=== PATIENT | female | born 1960 | race Caucasian/White ===

== ENCOUNTER 2016-10-18 08:50 | Inpatient (IN) | payer MEDICARE, MEDICAID ==
[2016-10-18] MEDS ORDERED: Naloxone* 0.4 MG/ML 1 ML VIAL ONE ×2 (08:53→08:55)
[2016-10-18] MEDS ORDERED: Acetaminophen SUPP* 650 MG SUPP ONE (08:56)
[2016-10-18] MEDS: NS 0.9% 1000 ML* 3,000 ML IV ONE ×3 (08:58→09:37)
[2016-10-18] MEDS ORDERED: Acetaminophen SUPP* 650 MG SUPP PR ONE (08:58)
[2016-10-18] MEDS ORDERED: Naloxone* 0.4 MG/ML 1 ML VIAL IV PUSH ONE (08:58)
[2016-10-18 09:13] LABS: FIO2 90
[2016-10-18 09:16] LABS: PCO2 Arterial 34 mmHg (35-45)
[2016-10-18 09:22] LABS: Hematocrit 38 % (35-47); Hemoglobin 12.6 g/dl (12.0-16.0); Mean Corpuscular HGB Conc 33 g/dl (31-36); Mean Corpuscular Hemoglobin 29 pg (27-31); Mean Corpuscular Volume 89 fL (80-97); Mean Platelet Volume 10 um3 (7.4-10.4); Red Blood Count 4.28 10^6/ul (4.0-5.4); Red Cell Distribution Width 13 % (10.5-15); White Blood Count 11.1 10^3/ul (3.5-10.8)
[2016-10-18 09:24] LABS: Add Diff/Slide Review? Slide Review Added; Comments Flag Yes
[2016-10-18] MEDS ORDERED: Vancomycin(*) 1,000 MG in NS 0.9% 250 ML* 250 ML IVPB ONE (09:27)
[2016-10-18] MEDS ORDERED: Piperac/Tazob 3.375 gm in NS* 3.375 GM/100 ML BAG IVPB ONE ×2 (09:27→12:30)
--- NOTE | 2016-10-18 09:30 | RAD ---
Indication: Fever, pneumonia. Single frontal view of the chest performed at 0917 hours was reviewed. Comparison is made with previous exam dated 07/08/2010. No mediastinal shift is noted. Heart is of normal size and configuration. There is increased density in the right upper lobe medially as well as in the right lower lobe medially suspicious for pneumonia. IMPRESSION: Findings consistent with right lower lobe and right upper lobe pneumonia. Left lung field is clear
[2016-10-18 09:38] LABS: Benzodiazepine Urine Screen Presumptive Positive (None Detect); Urine Bacteria Absent (Absent); Urine Bilirubin Negative (Negative); Urine Glucose Negative (Negative); Urine Nitrite Negative (Negative)
[2016-10-18 09:41] LABS: Albumin 3.6 g/dL (3.2-5.2); BUN/Creatinine Ratio 19.7 (8-20); C Reactive Protein 258.14 mg/L (< 5.00); Calcium 8.9 mg/dL (8.6-10.3); EGFR African American 30.8 (>60); Globulin 3.1 g/dL (2-4); Potassium 3.8 mmol/L (3.5-5.0); Total Bilirubin 0.6 mg/dL (0.2-1.0); Total Protein 6.7 g/dL (6.4-8.9)
[2016-10-18 09:46] LABS: Troponin I 1.41 ng/mL (<0.04)
[2016-10-18 09:47] LABS: Immature Granulocytes 13 % (0-9); Neutrophil % 67 % (38-83)
[2016-10-18 09:48] LABS: RBC Morphology Normal (Normal)
--- NOTE | 2016-10-18 10:24 | RAD ---
Indication: Altered mental status, confusion. CT of the brain was performed without IV contrast. Ventricular structures are midline. No midline shift is noted. The extraction spaces are unremarkable. There is no evidence of intracranial mass or hemorrhage. No other high or low density lesions are identified. IMPRESSION: No intracranial mass or hemorrhage is noted.
[2016-10-18 10:25] LABS: Erythrocyte Sed Rate 58 mm/Hr (0-30)
--- NOTE | 2016-10-18 11:49 | ED ---
Jayden Franz SooYoung, scribed for Conrado Rockwell MD on 10/18/16 at 0917 . Altered Mental Status - HPI Summary HPI Summary: LEVEL 5 CAVEAT: LIMITED HPI DUE TO PT CONDITION: UNRESPONSIVE A 55 y/o F ELIAA presents to ED unresponsive. Pt has been prev admitted for psychosis and drug overdose. According to EMS: Pt had been sleeping for 30 hours. Mostly sporadic movement. She was given two Narcan nasally and became slightly more responsive. Blood sugar was 115. Sp02 is 92. Sinus tachy at 107. Was told by friend on scene that pt is on a lot of pain meds, he will bring list to ED. Tympanic temp 101.8. - History Of Current Complaint Stated Complaint: AMS Time Seen by Provider: 10/18/16 08:58 Hx Obtained From: EMS, Medical Records - Allergies/Home Medications Allergies/Adverse Reactions: Allergies Allergy/AdvReac Type Severity Reaction Status Date / Time CONTRAST FOR MYLOGRAM Allergy See Comment Uncoded 02/08/14 11:53 PMH/Surg Hx/FS Hx/Imm Hx Previously Healthy: No Endocrine/Hematology History: Denies: Hx Diabetes Cardiovascular History: Denies: Hx Hypertension, Hx Pacemaker/ICD History: Denies: Hx Renal Disease Sensory History: Denies: Hx Hearing Aid Psychiatric History: Reports: Hx Eating Disorder Denies: Hx Panic Disorder, Hx of Violent Episodes Against Others - Cancer History Hx Chemotherapy: No Hx Radiation Therapy: No - Surgical History Surgery Procedure, Year, and Place: CSP - C5-6 CADAVOR( OWN HIP BONE ). TONSILECTOMY. LT ARM - FX. HYSTERECTOMY Infectious Disease History: Denies: Traveled Outside the [place] in Last 30 Days - Family History Family History: LEVEL 5 CAVEAT: LIMITED PMHx/FHx/SHx DUE TO PT CONDITION: UNRESPONSIVE - Social History Alcohol Use: None Substance Use Type: Reports: None Smoking Status (MU): Never Smoked Tobacco Review of Systems - ROS Summary Review of Systems Summary: LEVEL 5 CAVEAT: LIMITED ROS DUE TO PT CONDITION: UNRESPONSIVE Neurological: Other - unresponsive All Other Systems Reviewed And Are Negative: Yes Physical Exam - Summary Physical Exam Summary: LEVEL 5 CAVEAT: PE LIMITED DUE TO PT CONDITION, UNRESPONSIVE: The patient is NONVERBAL, NOT FOLLOWING COMMANDS. RESPONDS TO PAINFUL STIMULI. SKIN: L TEMPORAL ECCHYMOSIS. TURGOR DECREASED. HEENT: The head is normocephalic and atraumatic. The conjunctivae are clear and without drainage. Nares are patent and without drainage. Throat is without erythema and exudate. The external ears are intact. The ear canals are patent and without drainage. The tympanic membranes are intact. PUPILS DILATED. EAR DRUMS NML. NO RHINORRHEA. ORAL MUCOSA EXTREMELY DRY. GAG REFLEX POSITIVE. Neck is supple. Respiratory: Chest is non-tender. Lungs are clear to auscultation and breath sounds are symmetrical and equal. Cardiovascular: Heart is regular rhythm. TACHYCARDIA. There is NO MURMUR APPRECIATED. There is no peripheral edema and pulses are symmetrical and equal. Abdomen: The abdomen is soft and non-tender. There are normal bowel sounds heard in all four quadrants and there is no organomegaly palpated. Musculoskeletal: NO BACK TRAUMA. BEGINNING BREAKDOWN OF SACCRUM. CAP REFILL 2 SECS. There is no peripheral edema or calf tenderness elicited. Triage Information Reviewed: Yes Vital Signs On Initial Exam: Initial Vitals Pulse Resp BP Pulse Ox 106 32 152/96 97 10/18/16 08:54 10/18/16 08:54 10/18/16 08:54 10/18/16 08:54 Vital Signs Reviewed: Yes Diagnostics - Vital Signs Vital Signs Temp Pulse Resp BP Pulse Ox 10/18/16 10:15 99.5 F 99 29 100 10/18/16 10:00 38 F 100 36 152/96 98 10/18/16 09:59 100.0 F 101 31 100 10/18/16 09:30 100.6 F 96 29 180/87 100 10/18/16 09:24 100.6 F 96 29 100 10/18/16 09:23 165/90 10/18/16 09:17 38 F 98 36 167/85 100 10/18/16 09:12 101 35 91 10/18/16 09:00 105 34 161/77 98 10/18/16 08:54 106 32 152/96 97 - Laboratory Lab Results: Lab Results 10/18/16 10/18/16 10/18/16 Range/Units 09:00 09:00 09:00 WBC (3.5-10.8) 10^3/ul RBC (4.0-5.4) 10^6/ul Hgb (12.0-16.0) g/dl Hct (35-47) % MCV (80-97) fL MCH (27-31) pg MCHC (31-36) g/dl RDW (10.5-15) % Plt Count (150-450) 10^3/ul MPV (7.4-10.4) um3 Immature Gran % (Auto) (0-9) % Neut % (Auto) (38-83) % Lymph % (Auto) (25-47) % [place] % (Auto) (1-9) % Eos % (Auto) (0-6) % Baso % (Auto) (0-2) % Absolute Neuts (auto) (1.5-7.7) 10^3/ul Absolute Lymphs (auto) (1.0-4.8) 10^3/ul Absolute Monos (auto) (0-0.8) 10^3/ul Absolute Eos (auto) (0-0.6) 10^3/ul Absolute Basos (auto) (0-0.2) 10^3/ul Absolute Nucleated RBC 10^3/ul Neutrophils % (38-83) % Band Neutrophils % (0-8) % Lymphocytes % (25-47) % Monocytes % (0-13) % Basophils % (0-2) % Nucleated RBC % Normal RBC Morphology (Normal) ESR (0-30) mm/Hr INR (Anticoag Therapy) (0.89-1.11) APTT (26.0-36.3) seconds Patient Temperature Not Reportable ABG pH 7.45 (7.35-7.45) ABG pCO2 34 L (35-45) mmHg ABG pO2 105 H (80-100) mmHg ABG HCO3 24.9 (19-31) mmol/L ABG O2 Saturation 99.2 H (95-98) % ABG Base Excess 0 (-2.0-2.0) Respiration Rate Not Reportable O2 Delivery Device Oxymask Ventilator Type Not Reportable Vent Mode Not Reportable FiO2 90 Inspiratory Time Not Reportable PEEP Not Reportable Pressure Support Not Reportable Pressure Control Not Reportable EPAP Not Reportable IPAP Not Reportable BiPAP Not Reportable Sodium (133-145) mmol/L Potassium (3.5-5.0) mmol/L Chloride (101-111) mmol/L Carbon Dioxide (22-32) mmol/L Anion Gap (2-11) mmol/L BUN (6-24) mg/dL Creatinine (0.51-0.95) mg/dL Est GFR ( Amer) (>60) Est GFR (Non-Af Amer) (>60) BUN/Creatinine Ratio (8-20) Glucose (70-100) mg/dL Lactic Acid (0.5-2.0) mmol/L Calcium (8.6-10.3) mg/dL Total Bilirubin (0.2-1.0) mg/dL AST (13-39) U/L ALT (7-52) U/L Alkaline Phosphatase (34-104) U/L Total Creatine Kinase (10-223) U/L Troponin I (<0.04) ng/mL C-Reactive Protein (< 5.00) mg/L Total Protein (6.4-8.9) g/dL Albumin (3.2-5.2) g/dL Globulin (2-4) g/dL Albumin/Globulin Ratio (1-3) Procalcitonin (<0.6) ng/mL Urine Color [place] Urine Appearance Cloudy Urine pH 5.0 (5-9) Ur Specific [place] 1.021 (1.010-1.030) Urine Protein 1+(30 mg/dl) H (Negative) Urine Ketones Trace H (Negative) Urine Blood 2+ H (Negative) Urine Nitrate Negative (Negative) Urine Bilirubin Negative (Negative) Urine Urobilinogen Negative (Negative) Ur Leukocyte Esterase Negative (Negative) Urine WBC (Auto) Absent (Absent) Urine RBC (Auto) Trace(0-2/hpf) (Absent) Ur Squamous Epith Cells Present H (Absent) Amorphous Crystals Present H (Absent) Urine Bacteria Absent (Absent) Hyaline Casts Present H (Absent) Urine Glucose Negative (Negative) Urine Opiates Screen Presumptive positive H (None Detect) Ur Barbiturates Screen None detected (None Detect) Ur Phencyclidine Scrn None detected (None Detect) Ur Amphetamines Screen None detected (None Detect) U Benzodiazepines Scrn Presumptive positive H (None Detect) Urine Cocaine Screen None detected (None Detect) U Cannabinoids Screen Presumptive positive H (None Detect) Influenza A (Rapid) (Negative) Influenza B (Rapid) (Negative) 10/18/16 10/18/16 10/18/16 Range/Units 09:13 09:13 09:13 WBC 11.1 H (3.5-10.8) 10^3/ul RBC 4.28 (4.0-5.4) 10^6/ul Hgb 12.6 (12.0-16.0) g/dl Hct 38 (35-47) % MCV 89 (80-97) fL MCH 29 (27-31) pg MCHC 33 (31-36) g/dl RDW 13 (10.5-15) % Plt Count 195 (150-450) 10^3/ul MPV 10 (7.4-10.4) um3 Immature Gran % (Auto) 13 H (0-9) % Neut % (Auto) 87.4 H (38-83) % Lymph % (Auto) 5.3 L (25-47) % [place] % (Auto) 7.1 (1-9) % Eos % (Auto) 0.1 (0-6) % Baso % (Auto) 0.1 (0-2) % Absolute Neuts (auto) 9.7 H (1.5-7.7) 10^3/ul Absolute Lymphs (auto) 0.6 L (1.0-4.8) 10^3/ul Absolute Monos (auto) 0.8 (0-0.8) 10^3/ul Absolute Eos (auto) 0 (0-0.6) 10^3/ul Absolute Basos (auto) 0 (0-0.2) 10^3/ul Absolute Nucleated RBC 0 10^3/ul Neutrophils % 67 (38-83) % Band Neutrophils % 13 H (0-8) % Lymphocytes % 10 L (25-47) % Monocytes % 9 (0-13) % Basophils % 1 (0-2) % Nucleated RBC % 0 Normal RBC Morphology Normal (Normal) ESR 58 H (0-30) mm/Hr INR (Anticoag Therapy) 1.01 (0.89-1.11) APTT 30.8 (26.0-36.3) seconds Patient Temperature ABG pH (7.35-7.45) ABG pCO2 (35-45) mmHg ABG pO2 (80-100) mmHg ABG HCO3 (19-31) mmol/L ABG O2 Saturation (95-98) % ABG Base Excess (-2.0-2.0) Respiration Rate O2 Delivery Device Ventilator Type Vent Mode FiO2 Inspiratory Time PEEP Pressure Support Pressure Control EPAP IPAP BiPAP Sodium 142 (133-145) mmol/L Potassium 3.8 (3.5-5.0) mmol/L Chloride 105 (101-111) mmol/L Carbon Dioxide 25 (22-32) mmol/L Anion Gap 12 H (2-11) mmol/L BUN 42 H (6-24) mg/dL Creatinine 2.13 H (0.51-0.95) mg/dL Est GFR ( Amer) 30.8 (>60) Est GFR (Non-Af Amer) 24.0 (>60) BUN/Creatinine Ratio 19.7 (8-20) Glucose 112 H (70-100) mg/dL Lactic Acid (0.5-2.0) mmol/L Calcium 8.9 (8.6-10.3) mg/dL Total Bilirubin 0.60 (0.2-1.0) mg/dL AST 125 H (13-39) U/L ALT 53 H (7-52) U/L Alkaline Phosphatase 41 (34-104) U/L Total Creatine Kinase 2359 H (10-223) U/L Troponin I 1.41 H* (<0.04) ng/mL C-Reactive Protein 258.14 H (< 5.00) mg/L Total Protein 6.7 (6.4-8.9) g/dL Albumin 3.6 (3.2-5.2) g/dL Globulin 3.1 (2-4) g/dL Albumin/Globulin Ratio 1.2 (1-3) Procalcitonin (<0.6) ng/mL Urine Color Urine Appearance Urine pH (5-9) Ur Specific [place] (1.010-1.030) Urine Protein (Negative) Urine Ketones (Negative) Urine Blood (Negative) Urine Nitrate (Negative) Urine Bilirubin (Negative) Urine Urobilinogen (Negative) Ur Leukocyte Esterase (Negative) Urine WBC (Auto) (Absent) Urine RBC (Auto) (Absent) Ur Squamous Epith Cells (Absent) Amorphous Crystals (Absent) Urine Bacteria (Absent) Hyaline Casts (Absent) Urine Glucose (Negative) Urine Opiates Screen (None Detect) Ur Barbiturates Screen (None Detect) Ur Phencyclidine Scrn (None Detect) Ur Amphetamines Screen (None Detect) U Benzodiazepines Scrn (None Detect) Urine Cocaine Screen (None Detect) U Cannabinoids Screen (None Detect) Influenza A (Rapid) (Negative) Influenza B (Rapid) (Negative) 10/18/16 10/18/16 10/18/16 Range/Units 09:13 09:13 10:11 WBC (3.5-10.8) 10^3/ul RBC (4.0-5.4) 10^6/ul Hgb (12.0-16.0) g/dl Hct (35-47) % MCV (80-97) fL MCH (27-31) pg MCHC (31-36) g/dl RDW (10.5-15) % Plt Count (150-450) 10^3/ul MPV (7.4-10.4) um3 Immature Gran % (Auto) (0-9) % Neut % (Auto) (38-83) % Lymph % (Auto) (25-47) % [place] % (Auto) (1-9) % Eos % (Auto) (0-6) % Baso % (Auto) (0-2) % Absolute Neuts (auto) (1.5-7.7) 10^3/ul Absolute Lymphs (auto) (1.0-4.8) 10^3/ul Absolute Monos (auto) (0-0.8) 10^3/ul Absolute Eos (auto) (0-0.6) 10^3/ul Absolute Basos (auto) (0-0.2) 10^3/ul Absolute Nucleated RBC 10^3/ul Neutrophils % (38-83) % Band Neutrophils % (0-8) % Lymphocytes % (25-47) % Monocytes % (0-13) % Basophils % (0-2) % Nucleated RBC % Normal RBC Morphology (Normal) ESR (0-30) mm/Hr INR (Anticoag Therapy) (0.89-1.11) APTT (26.0-36.3) seconds Patient Temperature ABG pH (7.35-7.45) ABG pCO2 (35-45) mmHg ABG pO2 (80-100) mmHg ABG HCO3 (19-31) mmol/L ABG O2 Saturation (95-98) % ABG Base Excess (-2.0-2.0) Respiration Rate O2 Delivery Device Ventilator Type Vent Mode FiO2 Inspiratory Time PEEP Pressure Support Pressure Control EPAP IPAP BiPAP Sodium (133-145) mmol/L Potassium (3.5-5.0) mmol/L Chloride (101-111) mmol/L Carbon Dioxide (22-32) mmol/L Anion Gap (2-11) mmol/L BUN (6-24) mg/dL Creatinine (0.51-0.95) mg/dL Est GFR ( Amer) (>60) Est GFR (Non-Af Amer) (>60) BUN/Creatinine Ratio (8-20) Glucose (70-100) mg/dL Lactic Acid 1.3 (0.5-2.0) mmol/L Calcium (8.6-10.3) mg/dL Total Bilirubin (0.2-1.0) mg/dL AST (13-39) U/L ALT (7-52) U/L Alkaline Phosphatase (34-104) U/L Total Creatine Kinase (10-223) U/L Troponin I (<0.04) ng/mL C-Reactive Protein (< 5.00) mg/L Total Protein (6.4-8.9) g/dL Albumin (3.2-5.2) g/dL Globulin (2-4) g/dL Albumin/Globulin Ratio (1-3) Procalcitonin 3.5 H (<0.6) ng/mL Urine Color Urine Appearance Urine pH (5-9) Ur Specific [place] (1.010-1.030) Urine Protein (Negative) Urine Ketones (Negative) Urine Blood (Negative) Urine Nitrate (Negative) Urine Bilirubin (Negative) Urine Urobilinogen (Negative) Ur Leukocyte Esterase (Negative) Urine WBC (Auto) (Absent) Urine RBC (Auto) (Absent) Ur Squamous Epith Cells (Absent) Amorphous Crystals (Absent) Urine Bacteria (Absent) Hyaline Casts (Absent) Urine Glucose (Negative) Urine Opiates Screen (None Detect) Ur Barbiturates Screen (None Detect) Ur Phencyclidine Scrn (None Detect) Ur Amphetamines Screen (None Detect) U Benzodiazepines Scrn (None Detect) Urine Cocaine Screen (None Detect) U Cannabinoids Screen (None Detect) Influenza A (Rapid) Negative (Negative) Influenza B (Rapid) Negative (Negative) Result Diagrams: 10/18/16 09:13 01/27/17 09:13 Lab Statement: Any lab studies that have been ordered have been reviewed, and results considered in the medical decision making process. - Radiology CXR Xray Interpretation: Positive (See Comments) - IMPRESSION: FINDINGS CONSISTENT WITH R LOWER LOBE AND R UPPER LOBE PNA. LEFT LUNG FIELD IS CLEAR. Radiology Interpretation Completed By: Radiologist BRAIN CT Xray Interpretation: No Acute Changes - IMPRESSIN: NO INTRACRANIAL MASS OR HEMMORHAGE IS NOTED. Radiology Interpretation Completed By: Radiologist - EKG 1 EKG Rhythm: Sinus Tachycardia EKG Interpretation: ST abnormalities in V2, V3; poor R-wave progression; prolonged QT interval Re-Evaluation - Re-Evaluation 1 Re-Evaluation Time: 09:59 Change: Improved Comment: Pt is responsive to painful stimuli. Pupils still dilated. Mildly more responsive. 2 Re-Evaluation Time: 10:31 Change: Unchanged Comment: Pt is responsive to painful stimuli. Pupils still dilated. Told pt she will be admitted to ICU. Altered Mental Statu Course/Dx - Course Assessment/Plan: First trop at 0913 is 1.41. Reviewed pt's past medical records. - Diagnoses Differential Diagnosis/HQI/PQRI: Hypoglycemia, Hyperthermia, Intracranial Bleed , Metabolic Disorder, Overdose, Sepsis, Other - pneumonia, Discharge Diagnoses: PNA (pneumonia), Altered mental status, Severe sepsis, Acute dyspnea, Rhabdomyolysis, Non-ST elevation NE (NSTEMI) - Provider Notifications Discussed Care Of Patient With: 0938: Spoke with Dr. Vera, ICU. 1027: Spoke with Dr. Vera, discussed results, admit to ICU, room 7. Instructed by Provider To: Admit As Inpatient - Critical Care Time Critical Care Time: 30-74 min - 45 minutes Discharge - Discharge Plan Condition: Critical Disposition: ADMITTED TO [facility] The documentation as recorded by the Jayden herr SooYoung accurately reflects the service I personally performed and the decisions made by me, Conrado Rockwell MD.
[2016-10-18] MEDS ORDERED: Enoxaparin(*) 40 MG/0.4 ML SYR SUBCUT SCH (12:00)
[2016-10-18] MEDS: Famotidine IV * 20 MG in NS 0.9% 100 ML* 100 ML IVPB SCH (12:28)
[2016-10-18] MEDS: Piperac/Tazob 3.375 gm in NS* 3.375 GM/100 ML BAG IVPB SCH (16:37)
--- NOTE | 2016-10-18 18:58 | HP ---
ADMISSION HISTORY AND PHYSICAL: DATE OF ADMISSION: 10/18/16 REASON FOR ADMISSION: Altered mental status. HISTORY OF PRESENT ILLNESS: This patient is a 55-year-old white female with a psychiatric history including hospitalizations for suicide attempts and chronic depression, who was brought to the emergency department today by her live-in boyfriend because of altered mental status. According to the boyfriend, the patient was discovered to be poorly responsive yesterday morning and was not brought in for the ensuing 24 hours. The patient has been on morphine for chronic neck pain but naloxone in the emergency department failed to revive the patient. There is no recent history of trauma and no complaints of fever, chills, headache, or symptoms of upper respiratory tract infection. There has also been no suicide ideation recently. In the emergency department, the patient was unresponsive to verbal commands but had an adequate cough and gag reflex, and thus intubation was deferred. CT scan did not reveal intracranial hemorrhage and the patient is admitted to the intensive care unit with a diagnosis of altered mental status, possible drug overdose (accidental). MEDICATIONS: Outpatient medications include: 1. MS Contin 15 or 30 mg q.4 hours p.r.n. pain. 2. Trazodone 100 to 300 mg p.o. at bedtime. 3. BuSpar 5 to 10 mg p.o. b.i.d. 4. Wellbutrin 150 mg p.o. daily. 5. Diazepam 10 mg p.o. four times a day p.r.n. anxiety. 6. Albuterol inhaler 2 puffs q.4 hours p.r.n. ALLERGIES: The patient is allergic to CONTRAST used for myelography. SOCIAL HISTORY: The patient is unmarried, has no children, and has been living with the same man for 25 years. She has not smoked cigarettes for 5 years and does not abuse alcohol. REVIEW OF SYSTEMS: Unavailable. PHYSICAL EXAMINATION GENERAL: The patient was unresponsive to verbal commands and did not localize to deep pain. VITAL SIGNS: Temp 99.7, blood pressure 160/80, heart rate 99 and regular, respirations 34, O2 97% on room air. HEENT: Pupils were dilated and poorly responsive (following naloxone), corneas were intact. Eye movements appeared full. There is no facial asymmetry. Gag reflex is intact. NECK: Supple and without masses or jugular venous distention. LUNGS: Occasional rhonchi. No crackles or wheezes. CARDIAC: Regular rhythm. No murmurs, rubs, or gallops. ABDOMEN: Not distended. Bowel sounds present. EXTREMITIES: Warm. No cyanosis or edema. NEUROLOGIC: The patient appears to move all extremities and there were jerking myoclonic movements in both lower extremities. DIAGNOSTIC STUDIES/LAB DATA: Admission laboratory data was significant for a white blood count of 11.1 with 13% bands and a creatinine of 2.13 with CPK of 2359 and C- reactive protein of 258. Procalcitonin was 3.5. Chest x-ray showed possible infiltrates in the right upper lung field and right lower lung field. EKG revealed a sinus tachycardia. CT of the brain showed no evidence of hemorrhage and no masses. Urine tox screen was positive for opiates, benzodiazepines, and cannabinoids. IMPRESSION: A 55-year-old white female with a history of suicide attempts and opiate dependence, who presents with altered mental status and low-grade rhabdomyolysis. This is most likely drug related, although cannot rule out sepsis at the present time. MANAGEMENT PLAN: IV fluids to limit the risk of renal injury from the rhabdomyolysis. Will also start empiric antibiotic coverage with Zosyn pending results of blood and urine culture (sputum culture not available). Will not repeat naloxone or administer flumazenil at this time, but monitor the patient' s mental status. I do not feel the patient needs to be intubated at this time. The patient's boyfriend is aware of the current condition and the management plan. CRITICAL CARE TIME: Sixty minutes. [id number]/CPS #: [id number] MTDD
[2016-10-18] MEDS: Heparin VIAL(*) 5000 UNITS/ML VIAL (FIVE THOUSAND) SUBCUT SCH (21:45)
[2016-10-19] MEDS: Piperac/Tazob 3.375 gm in NS* 3.375 GM/100 ML BAG IVPB SCH ×2 (00:21→08:27)
[2016-10-19 05:45] LABS: Hematocrit 32 % (35-47); Hemoglobin 10.6 g/dl (12.0-16.0); Mean Corpuscular HGB Conc 33 g/dl (31-36); Mean Corpuscular Hemoglobin 30 pg (27-31); Mean Corpuscular Volume 89 fL (80-97); Mean Platelet Volume 10 um3 (7.4-10.4); Red Blood Count 3.59 10^6/ul (4.0-5.4); Red Cell Distribution Width 13 % (10.5-15)
[2016-10-19 05:56] LABS: Albumin 2.6 g/dL (3.2-5.2); BUN/Creatinine Ratio 36.7 (8-20); Calcium 8.5 mg/dL (8.6-10.3); EGFR African American 96.8 (>60); EGFR Non-African American 75.3 (>60); Globulin 2.5 g/dL (2-4); Potassium 3.7 mmol/L (3.5-5.0); Total Bilirubin 0.6 mg/dL (0.2-1.0); Total Protein 5.1 g/dL (6.4-8.9)
[2016-10-19 06:00] LABS: Troponin I 0.23 ng/mL (<0.04)
[2016-10-19] MEDS: Heparin VIAL(*) 5000 UNITS/ML VIAL (FIVE THOUSAND) SUBCUT SCH ×2 (08:07→22:04)
[2016-10-19] MEDS: Famotidine IV * 20 MG in NS 0.9% 100 ML* 100 ML IVPB SCH (08:07)
--- NOTE | 2016-10-19 08:48 | RAD ---
Indication: Hypoxia. Single frontal view of the chest performed at 0015 hours was reviewed. Comparison is made with previous exam dated October 18, 2016. Right upper lobe and right basilar airspace disease consistent with pneumonia persists. Left lung field is clear. IMPRESSION: RIGHT UPPER LOBE AND RIGHT LOWER LOBE PNEUMONIA IS NOTED SIMILAR TO THAT SEEN ON OCTOBER 18, 2016.
[2016-10-19] MEDS: Nystatin SUSPENSION* 100000 UNITS/ML 5 ML UDC PO SCH ×3 (12:02→22:03)
[2016-10-19] MEDS ORDERED: Morphine ORAL.SOLN 10 mg* 2 MG/ML UDC 5 ml PO PRN (13:33)
--- NOTE | 2016-10-19 14:06 | PN ---
Critical Care Services: Is awake today and responding appropriately to verbal commands. Confirms excessive drug use and denies suicide attempt. Vital Signs: Temp Pulse Resp BP SpO2 FiO2 99.7 F 66 15 141/75 99 90 Physical Exam: Gen:resting comfortably Lungs:clear Extremities:warm. no cyanosis or edema. Fluid Balance (Past 24 Hours): 10/19/16 06:59 Intake Total 6950 Output Total 785 Balance +6165 Weight 112 lb Intake: IV Fluids 6290 ABX - ZOSYN 72 LR 6218 IVPB 660 ABX - VANCOMYCIN 250 ABX - ZOSYN 310 PEPCID 100 Oral 0 Output: [place] 785 Labs: 10/19/16 10/19/16 05:32 05:32 WBC 9.0 RBC 3.59 Hgb 10.6 Hct 32 MCV 89 MCH 30 MCHC 33 RDW 13 Plt Count 165 MPV 10 Sodium 142 Potassium 3.7 Chloride 114 Carbon Dioxide 24 BUN 29 Creatinine 0.79 Glucose 122 Calcium 8.5 Total Bilirubin 0.60 AST 63 ALT 38 Alkaline Phosphatase 30 Total Creatine Kinase 731 Troponin I 0.23 Total Protein 5.1 Albumin 2.6 Studies: CXR: Poorly defined opacities in right hemithorax. Nutrition: Start oral diet today Impression: Accidental drug OD. Rhabdomyolysis resolving. Doubt pneumonia based on clinical grounds. Plan: Start oral fluids and cut back on IV fluids. Critical Care Time:
[2016-10-19] MEDS: LORazepam TAB(*) 1 MG PO PRN (22:50)
[2016-10-20 06:16] LABS: Calcium 8.8 mg/dL (8.6-10.3); EGFR African American 164.1 (>60); EGFR Non-African American 127.6 (>60)
[2016-10-20 06:20] LABS: Potassium 2.7 mmol/L (3.5-5.0)
[2016-10-20] MEDS ORDERED: Potassium Chlor TAB* 20 MEQ TAB.ER PO ONE (07:12)
[2016-10-20] MEDS: KCL 10 MEQ/50 ML IVPREMIX* 10 MEQ/50 ML BAG IV SCH ×2 (07:40→10:03)
[2016-10-20] MEDS: Nystatin SUSPENSION* 100000 UNITS/ML 5 ML UDC PO SCH ×4 (07:57→20:41)
[2016-10-20] MEDS: Heparin VIAL(*) 5000 UNITS/ML VIAL (FIVE THOUSAND) SUBCUT SCH ×2 (07:58→20:41)
[2016-10-20] MEDS: LORazepam TAB(*) 1 MG PO PRN (10:03)
--- NOTE | 2016-10-20 10:07 | PN ---
Subjective Date of Service: 10/20/16 Interval History: Patient seen and examined at bedside. Pt states that she is feeling well. Pt continues to have confusion. Denies fever, chills, shortness of breath, chest discomfort, N/V/D. Per Pt's significant other she is not at her baseline mental status. Pt "seems out of it". Family History: Unchanged from Admission Social History: Unchanged from Admission Past Medical History: Unchanged from Admission Objective Active Medications: Heparin Sodium (Porcine) (Heparin Vial(*)) 5,000 units SUBCUT Q12HR [facility] Lactated Ringer's (Lactated Ringers 1000 Ml Bag*) 1,000 mls @ 175 mls/hr IV PER RATE [facility] Potassium Chloride (Potassium Chloride 10 Meq/50 Ml Ivpremix*) 10 meq in 50 mls @ 50 mls/hr IV Q2H [facility] Stop: 10/20/16 10:13 Lorazepam (Ativan Tab(*)) 1 mg PO Q6H PRN Reason: ANXIETY Morphine Sulfate (Morphine Oral.Soln 10 Mg*) 20 mg PO Q4H PRN Reason: PAIN Nystatin (Nystatin Suspension*) 200,000 units PO QID [facility] Vital Signs 10/19/16 10/19/16 10/19/16 10:30 11:00 11:38 Temperature 99.8 F 99.8 F 99.7 F Pulse Rate 65 64 73 Respiratory 16 16 25 Rate Blood Pressure 109/53 102/57 123/79 (mmHg) O2 Sat by Pulse 95 97 98 Oximetry 10/19/16 10/19/16 10/19/16 12:00 12:30 13:00 Temperature 99.8 F 99.7 F 99.7 F Pulse Rate 57 59 66 Respiratory 15 12 15 Rate Blood Pressure 125/54 110/56 141/75 (mmHg) O2 Sat by Pulse 98 98 99 Oximetry 10/19/16 10/19/16 10/19/16 13:48 14:17 15:20 Temperature 97.9 F 97.9 F 98.3 F Pulse Rate 74 74 87 Respiratory 18 18 16 Rate Blood Pressure 132/82 132/82 148/75 (mmHg) O2 Sat by Pulse 99 99 99 Oximetry 10/19/16 10/19/16 10/19/16 20:04 22:00 22:50 Temperature 99.8 F Pulse Rate 106 Respiratory 16 18 22 Rate Blood Pressure 136/78 (mmHg) O2 Sat by Pulse 100 100 Oximetry 10/19/16 10/20/16 10/20/16 23:23 00:50 01:55 Temperature 99.6 F Pulse Rate 107 Respiratory 20 18 Rate Blood Pressure 143/87 (mmHg) O2 Sat by Pulse 94 94 Oximetry 10/20/16 10/20/16 04:08 07:11 Temperature 98.1 F 98.3 F Pulse Rate 85 85 Respiratory 20 16 Rate Blood Pressure 149/88 144/91 (mmHg) O2 Sat by Pulse 99 97 Oximetry Appearance: NAD, laying in bed. Eyes: No Scleral Icterus, PERRLA Ears/Nose/Mouth/Throat: NL Teeth, Lips, Gums, Mucous Membranes Moist Neck: NL Appearance and Movements; NL JVP, Trachea Midline Respiratory: Symmetrical Chest Expansion and Respiratory Effort, Clear to Auscultation - anterior, few fine crackles in right base and righ lower lobe Cardiovascular: NL Sounds; No Murmurs; No JVD, RRR Abdominal: NL Sounds; No Tenderness; No Distention - Bowel sounds present Extremities: No Edema Neurological: NL Muscle Strength and Tone, - - Alert and Oriented to Place ( knows she is in a Hospital, but not which one) and knows the President Lines/Tubes/Other Access: Clean, Dry and Intact Padilla - patent, draining clear yellow urine, Clean, Dry and Intact Peripheral IV - site benign Nutrition: Taking PO's Result Diagrams: 10/19/16 05:32 10/20/16 05:07 Additional Lab and Data: Microbiology and Other Data: Microbiology 10/18/16 11:55 Urine Culture - Final Urine No Growth (<1,000 CFU/mL) 10/18/16 11:55 Nasal Screen MRSA (PCR)(CRISTINA) - Final Nasal Mrsa Negative Assess/Plan/Problems-Billing Assessment: Ms. Whitley is a 55 yo female with PMH significant for history of suicide attempts and opiate dependence who presented to the emergency room with altered mental status and low-grade rhabdomyolysis. - Patient Problems (1) Altered mental status Code(s): R41.82 - ALTERED MENTAL STATUS, UNSPECIFIED SNOMED Code(s): 113053940 Comment: - Overdose of home medications, ? accidental. - Brain CT - no acute findings - Psych consult pending (2) Pneumonia Code(s): J18.9 - PNEUMONIA, UNSPECIFIED ORGANISM SNOMED Code(s): 276097122 Comment: - Chest xray - right upper and lower lobe PNA - Fine crackles in right upper and lower lobes - Leukocytosis resolved, elevated CRP, procalcitonin on admission was 3.5, afebrile now, was having low grade temps on 10/19 and 10/18. - Blood cultures negative - Will obtain urine for legionella and Strep pneumoniae and sputum culture - Will start levaquin PO (3) Non-traumatic rhabdomyolysis Code(s): M62.82 - RHABDOMYOLYSIS SNOMED Code(s): 517476711 Comment: - CK improving, down to 656 - Continue IVF (4) Elevated troponin Code(s): R79.89 - OTHER SPECIFIED ABNORMAL FINDINGS OF BLOOD CHEMISTRY SNOMED Code(s): 852525705 Comment: - Suspect this could be related to rhabdomyolysis. - Denies chest pain - Will check an echo (5) Electrolyte abnormality Code(s): E87.8 - OTH DISORDERS OF ELECTROLYTE AND FLUID BALANCE, NEC SNOMED Code(s): 222548534 Comment: - Hypokalemia. Will give replacement today and recheck labs in the AM. Will also check a MG+ today. (6) Elevated C-reactive protein (CRP) Code(s): R79.82 - ELEVATED C-REACTIVE PROTEIN (CRP) SNOMED Code(s): 717872168 Comment: - Leukocytosis resolved - Afebrile - Chest xray - Right upper and lower lobe PNA - Will recheck CRP today (7) Depression Code(s): F32.9 - MAJOR DEPRESSIVE DISORDER, SINGLE EPISODE, UNSPECIFIED SNOMED Code(s): 39336249 Comment: - Need to verify home medications, will restart medications once list has been obtained (8) DVT prophylaxis Code(s): NTY8074 - SNOMED Code(s): 595023397 Comment: SQ heparin (9) Full code status Code(s): Z78.9 - OTHER SPECIFIED HEALTH STATUS SNOMED Code(s): 026133162 Status and Disposition: Inpatient. Estimated LOS greater than 2 days.
[2016-10-20 11:22] LABS: C Reactive Protein 173.15 mg/L (< 5.00); Magnesium 1.6 mg/dL (1.9-2.7)
[2016-10-20] MEDS ORDERED: Magnesium Sulfate 2 GM IV* 2 GM/50 ML BAG IVPB ONE (12:08)
[2016-10-20] MEDS ORDERED: Albuterol HFA INHALER* 8 gm MDI INH PRN (12:30)
[2016-10-20] MEDS: Levofloxacin TAB* 500 MG PO SCH (12:52)
[2016-10-21] MEDS: LORazepam TAB(*) 1 MG PO PRN (02:37)
[2016-10-21 05:47] LABS: BUN/Creatinine Ratio 15.7 (8-20); Calcium 8.6 mg/dL (8.6-10.3); EGFR African American 160.4 (>60); EGFR Non-African American 124.7 (>60); Magnesium 1.7 mg/dL (1.9-2.7); Potassium 3.3 mmol/L (3.5-5.0)
[2016-10-21] MEDS ORDERED: Magnesium Sulfate 2 GM IV* 2 GM/50 ML BAG IVPB ONE (07:25)
[2016-10-21] MEDS ORDERED: Potassium Chlor TAB* 20 MEQ TAB.ER PO ONE (07:25)
[2016-10-21] MEDS ORDERED: KCL 20 MEQ/100 ML IVPREMIX* 20 MEQ/100 ML BAG IV ONE (07:25)
[2016-10-21] MEDS: Heparin VIAL(*) 5000 UNITS/ML VIAL (FIVE THOUSAND) SUBCUT SCH ×2 (07:54→22:34)
[2016-10-21] MEDS: Nystatin SUSPENSION* 100000 UNITS/ML 5 ML UDC PO SCH ×5 (07:54→22:36)
--- NOTE | 2016-10-21 11:39 | PN ---
Subjective Date of Service: 10/21/16 Interval History: patient reports she doesn't feel well today but cant say why, reports abdominal pain, bloating, multiple normal BMs this morning, denies diarrhea. per she was very constipated prior to hospitalization and took a lot of laxatives. reports she appears to not feel well today. Pt denies illness prior to coming into the hospital, denies URI symptoms but does note she had a cough that he thought was new. No N/V/D. No fevers or chills. Denies diaphoresis. Denies CP or SOB. No cough or sputum production. Denies tremors, confusion or hallucinations. Family History: Unchanged from Admission Social History: Unchanged from Admission Past Medical History: Unchanged from Admission Objective Active Medications: Albuterol (Ventolin Hfa Inhaler*) 2 puff INH Q4H PRN PRN Reason: COUGH Heparin Sodium (Porcine) (Heparin Vial(*)) 5,000 units SUBCUT Q12HR [facility] Last Admin: 10/21/16 07:54 Dose: Not Given Lactated Ringer's (Lactated Ringers 1000 Ml Bag*) 1,000 mls @ 100 mls/hr IV PER RATE [facility] Last Admin: 10/21/16 06:08 Dose: 100 mls/hr Levofloxacin (Levaquin Tab*) 500 mg PO Q24H [facility] Stop: 10/30/16 12:59 Last Admin: 10/20/16 12:52 Dose: 500 mg Lorazepam (Ativan Tab(*)) 1 mg PO Q6H PRN PRN Reason: ANXIETY Last Admin: 10/21/16 02:37 Dose: 1 mg Morphine Sulfate (Morphine Oral.Soln 10 Mg*) 20 mg PO Q4H PRN PRN Reason: PAIN Nystatin (Nystatin Suspension*) 200,000 units PO QID [facility] Last Admin: 10/21/16 07:54 Dose: 200,000 units Vital Signs 10/20/16 10/20/16 10/20/16 12:03 15:24 19:16 Temperature 98.3 F 98.8 F Pulse Rate 97 119 Respiratory 18 16 16 Rate Blood Pressure 140/87 140/91 (mmHg) O2 Sat by Pulse 96 93 Oximetry 10/20/16 10/20/16 10/20/16 20:00 21:14 23:27 Temperature 98.8 F Pulse Rate 124 Respiratory 16 20 Rate Blood Pressure 134/98 (mmHg) O2 Sat by Pulse 94 94 94 Oximetry 10/21/16 10/21/16 10/21/16 00:00 02:37 07:24 Temperature 98.4 F Pulse Rate 124 Respiratory 20 Rate Blood Pressure 151/97 (mmHg) O2 Sat by Pulse 93 94 Oximetry 10/21/16 10:51 Temperature Pulse Rate Respiratory Rate Blood Pressure (mmHg) O2 Sat by Pulse 92 Oximetry Oxygen Devices in Use Now: Nasal Cannula - 3L NC Appearance: 55 yo female laying in bed A+O x3, appears moderately ill, lethargic , increased RR, flushed Eyes: No Scleral Icterus, PERRLA Ears/Nose/Mouth/Throat: NL Teeth, Lips, Gums, Mucous Membranes Moist Neck: NL Appearance and Movements; NL JVP Respiratory: Symmetrical Chest Expansion and Respiratory Effort, - - right has crackles throughout - left clear with good aeration Cardiovascular: NL Sounds; No Murmurs; No JVD, RRR, No Edema, - - tachycardic Abdominal: - - soft, diffuse tenderness, hyperactive BS, mild guarding Lymphatic: No Cervical Adenopathy Extremities: No Edema, No Clubbing, Cyanosis Skin: No Rash or Ulcers, No Nodules or Sclerosis Neurological: Alert and Oriented x 3, NL Sensation, NL Muscle Strength and Tone Lines/Tubes/Other Access: Clean, Dry and Intact Peripheral IV Result Diagrams: 10/21/16 12:30 10/21/16 05:18 Additional Lab and Data: Microbiology and Other Data: Microbiology 10/18/16 11:55 Urine Culture - Final Urine No Growth (<1,000 CFU/mL) 10/18/16 11:55 Nasal Screen MRSA (PCR)(CRISTINA) - Final Nasal Mrsa Negative Assess/Plan/Problems-Billing Assessment: Ms. Whitley is a 55 yo female with PMH significant for history of suicide attempts and opiate dependence who presented to the emergency room with altered mental status and low-grade rhabdomyolysis in which she was intubated in the ED on arrival. Possible accidental overdose. Also found to have right upper and lower lobe pneumonia. - Patient Problems (1) Sepsis Comment: - tachycardic, increased RR, appears ill on exam - suspect source is respiratory or GI. abdominal pain/bloating/guarding - send for CT w/o (pt is allergic to contrast). Pt on 3 L NC O2 sat 98%. Also think patient could be detoxing as it appears she has not been given any narcotics. - start MS contin 15 mg BID, hold for sedation - check cbc, lactic acid now - start flagyl - NPO (2) Elevated troponin Comment: - EKG changes noted with Twave inversion V1, V2 - - check troponin now. Transfer to tele, trend troponins, EKGs, obtain echo - Denies chest pain (3) Pneumonia Comment: - Chest xray - right upper and lower lobe PNA - suspect aspiration. - Leukocytosis resolved, elevated CRP, procalcitonin on admission was 3.5, afebrile now, - Blood cultures negative. legionella and Strep pneumoniae urine antigens pending, sputum culture pending - Continue levaquin switch back to IV (4) Acute renal failure due to rhabdomyolysis Comment: - resolved (5) Electrolyte abnormality Comment: - replaced magnesium and potassium; recheck in am (6) Non-traumatic rhabdomyolysis Comment: - CK improving, down to 656 - Continue IVF (7) Depression Comment: - Need to verify home medications, will restart medications once list has been obtained (8) Chronic pain Comment: - suspect the pt is withdrawling - Start MS Contin 15 mg po BID, hold for sedation. Plan to titrate back to home dosage as pt tolerates. (9) DVT prophylaxis Comment: SQ heparin, SCDs (10) Full code status Status and Disposition: Inpatient. Estimated LOS greater than 2 days. Transfer to tele. Patient should be evaluated by Psych when medically stable - Dr. Raymundo is following peripherally, plan to contact him when pt is stable for an evaluation.
[2016-10-21] MEDS ORDERED: Morphine INJ* 10 MG/ML 1 ML CARPUJECT IV ONE (12:10)
[2016-10-21 12:47] LABS: Hematocrit 40 % (35-47); Hemoglobin 13.4 g/dl (12.0-16.0); Mean Corpuscular HGB Conc 34 g/dl (31-36); Mean Corpuscular Hemoglobin 29 pg (27-31); Mean Corpuscular Volume 87 fL (80-97); Mean Platelet Volume 10 um3 (7.4-10.4); Red Blood Count 4.58 10^6/ul (4.0-5.4); Red Cell Distribution Width 13 % (10.5-15); White Blood Count 12.3 10^3/ul (3.5-10.8)
[2016-10-21 12:48] LABS: Add Diff/Slide Review? Slide Review Added; Comments Flag Yes
[2016-10-21 13:08] LABS: Troponin I 0.37 ng/mL (<0.04)
[2016-10-21] MEDS: metroNIDAZOLE IV 500 MG/100ML* 500 MG/100 ML BAG IVPB SCH ×2 (13:33→23:35)
[2016-10-21] MEDS: Morphine TAB Extended Release (*) 15 MG TAB.ER PO SCH (13:33)
[2016-10-21] MEDS: Levofloxacin TAB* 500 MG PO SCH (13:39)
--- NOTE | 2016-10-21 13:42 | RAD ---
INDICATION: Abdominal pain and sepsis. COMPARISON: Comparison is made with a prior CT of the abdomen and pelvis from September 02, 2010. TECHNIQUE: A CT scan of the abdomen and pelvis was performed without intravenous or oral contrast. Contiguous axial sections were obtained from the lung bases through the symphysis pubis. Images were reconstructed in the coronal and sagittal planes. FINDINGS: Images through the lung bases demonstrate small bilateral pleural effusions and bilateral lower lobe infiltrates. The liver and spleen are normal in size without significant focal abnormality on this noncontrast study. No calcified gallstones are seen. There is diffuse fatty infiltration of the pancreas. The adrenal glands and kidneys are normal in size. No renal calculi or hydronephrosis is seen. There is a small amount of air within the urinary bladder. The abdominal aorta is normal in caliber. There is mild to moderate calcific plaque present. No significant enlarged retroperitoneal lymph nodes are seen. The stomach, small and large bowel appear nondistended. The appendix is not visualized. There is no evidence for diverticulitis or colitis. The patient is status post hysterectomy. There is a small amount of free intraperitoneal fluid present throughout the abdomen and pelvis. No free intraperitoneal air is seen. No significant focal osseous abnormality is seen. IMPRESSION: 1. SMALL BILATERAL PLEURAL EFFUSIONS AND BILATERAL LOWER LOBE INFILTRATES. 2. SMALL AMOUNT OF ASCITES. 3. STATUS POST HYSTERECTOMY. 4. LIMITED NONCONTRAST STUDY.
[2016-10-21] MEDS: Levofloxacin 500 MG IVPREMIX(* 500 MG/100 ML BAG IVPB SCH (14:50)
[2016-10-21] MEDS ORDERED: Aspirin EC TAB* 325 MG PO ONE (16:36)
--- NOTE | 2016-10-21 19:33 | ECHO ---
Patient: MARJORIE WINSTON [facility] Rec#: [id number] : 1960 Date: 10/21/2016 Age: 55y Height: 162.6 cm / 64.0 in Weight: 50.8 kg / 112.0 lbs Sex: F BSA: 1.53 Room#: [facility] Admit Date#: 10/19/2016 Type: Inpatient Referring: Fabienne Reyes NP Reading: Nba Paul MD Milieu Technician: Marcela Contreras RN RDCS CC: Main Davalos MD Transthoracic Echocardiogram Indication: Abnormal EKG, elevated troponin levels BP: 110/76 HR: 93 Rhythm: NSR Findings History: Chronic pain, opiate dependence, former smoker, psychiatric illness, suicide attempts Technical Comments: The study quality is fair. The study is technically limited due to the patient's smoking history. Left Ventricle: The left ventricular chamber size is normal. Septal wall hypertrophy is observed. There is a prominent septal knuckle. There are multiple regional wall motion abnormalities. There is moderately decreased left ventricular systolic function. The estimated ejection fraction is 25-30%. There is an E to A reversal in the mitral valve flow pattern suggestive of diastolic dysfunction. The basal anteroseptal, basal anterior, basal anterolateral, mid anteroseptal, mid anterior, mid anterolateral, mid inferoseptal, and apical septal wall segments are hypokinetic (score 2). The apical anterior wall segment is akinetic (score 3). Overall wallmotion score index is 2.11 Left Atrium: The left atrial chamber size is normal. Right Ventricle: The right ventricular chamber size and systolic function are within normal limits. Right Atrium: The right atrial cavity size is normal. Aortic Valve: The aortic valve is trileaflet. The aortic valve leaflets are mildly thickened. There is a trace of aortic regurgitation. There is no evidence of aortic stenosis. Mitral Valve: The mitral valve leaflets are mildly thickened. There is mild mitral regurgitation. There is no evidence of mitral stenosis. Tricuspid Valve: The tricuspid valve leaflets are normal. There is trace to mild tricuspid regurgitation. No pulmonary hypertension is noted. Pulmonic Valve: The pulmonic valve structure is not well visualized. There is a trace pulmonic regurgitation. There is no pulmonic stenosis. Pericardium: There is no significant pericardial effusion. Aorta: There is no dilatation of the ascending aorta. There is no dilatation of the aortic arch. The aortic root is normal in size. Pulmonary Artery: The main pulmonary artery is not well visualized. Venous: The inferior vena cava appears normal in size. There is an approximate 50% respiratory change in the inferior vena cava dimension. Conclusions There are multiple regional wall motion abnormalities. (see text) There is moderately decreased left ventricular systolic function. The estimated ejection fraction is 25-30%. The right ventricular chamber size and systolic function are within normal limits. There is a trace of aortic regurgitation. The mitral valve leaflets are mildly thickened. There is mild mitral regurgitation. There is trace to mild tricuspid regurgitation. There is no significant pericardial effusion. Measurements Name Value Normal Range RVDdMajor (2D) 2.5 cm (2.2 - 4.4) RAd ISD 4CH 3.5 cm (3.4 - 4.9) RA (A4C)W 3.3 cm (2.9 - 4.6) IVSd (2D) 1.2 cm (0.6 - 1) LVPWd (2D) 0.9 cm (0.6 - 1) LVIDd (2D) 3.9 cm (3.6 - 5.4) LVIDs (2D) 2.7 cm - LV FS (2D) 32 % (25 - 45) Aortic Annulus 2.1 cm (1.4 - 2.6) Ao root diameter (2D) 2.8 cm (2.1 - 3.5) Ascending Ao 2.9 cm (2.1 - 3.4) Aortic arch 2.3 cm (1.8 - 3.4) LA dimension (AP) 2D 2.8 cm (2.3 - 3.8) LAd ISD 4CH 4.3 cm (2.9 - 5.3) LA ISD 4CH W 3.7 cm (2.5 - 4.5) Name Value Normal Range LA ESV SP 4CH (A/L) 34 ml - LA ESV SP 2CH (A/L) 21 ml - LA ESV BP (A/L) 27 ml - LA ESV BP (A/L) index 18 ml/m2 - LA ESV SP 4CH (MOD) 32 ml - LA ESV SP 2CH (MOD) 20 ml - Name Value Normal Range MV E-wave Vmax 0.58 m/sec - MV deceleration time 177 msec - MV A-wave Vmax 0.83 m/sec - MV E:A ratio 0.7 ratio - LV septal e' Vmax 0.07 m/sec - LV lateral e' Vmax 0.06 m/sec - LV E:e' septal ratio 8.3 ratio - LV E:e' lateral ratio 9.7 ratio - Name Value Normal Range AV Vmax 1.4 m/sec - LVOT Vmax 0.86 m/sec - OMID Vmax 0.78 m/sec - Name Value Normal Range TR Vmax 2.1 m/sec - TR peak gradient 18 mmHg - RAP 8 mmHg - RVSP 26 mmHg - IVC diameter 1.1 cm - Name Value Normal Range PV Vmax 1.1 m/sec - Wallmotion BAS Hypokinetic BA Hypokinetic BAL Hypokinetic JUAN Not Seen BI Not Seen BIS Not Seen MAS Hypokinetic MA Hypokinetic MAL Hypokinetic MIL Not Seen MT Not Seen MIS Hypokinetic Hypokinetic AA Akinetic AL Not Seen AI Not Seen APEX Akinetic
[2016-10-22] MEDS: Morphine TAB Extended Release (*) 15 MG TAB.ER PO SCH ×2 (00:25→14:23)
[2016-10-22] MEDS: LORazepam TAB(*) 1 MG PO PRN (00:25)
[2016-10-22] MEDS ORDERED: Diphenoxylat/Atrop 2.5-0.025M* 1 TAB PO ONE (00:35)
[2016-10-22] MEDS: metroNIDAZOLE IV 500 MG/100ML* 500 MG/100 ML BAG IVPB SCH ×3 (04:23→20:24)
[2016-10-22 06:07] LABS: Add Diff/Slide Review? Slide Review Added; Comments Flag Yes; Hematocrit 32 % (35-47); Hemoglobin 10.9 g/dl (12.0-16.0); Mean Corpuscular HGB Conc 34 g/dl (31-36); Mean Corpuscular Hemoglobin 30 pg (27-31); Mean Corpuscular Volume 89 fL (80-97); Mean Platelet Volume 10 um3 (7.4-10.4); Red Blood Count 3.61 10^6/ul (4.0-5.4); Red Cell Distribution Width 13 % (10.5-15); White Blood Count 10.2 10^3/ul (3.5-10.8)
[2016-10-22 06:21] LABS: BUN/Creatinine Ratio 14.3 (8-20); Calcium 7.7 mg/dL (8.6-10.3); EGFR Non-African American 130.6 (>60); Magnesium 1.8 mg/dL (1.9-2.7); Potassium 3.4 mmol/L (3.5-5.0)
[2016-10-22] MEDS: DULoxetine DR CAP* 60 MG CAP.DR PO SCH (08:33)
[2016-10-22] MEDS: Aspirin EC Low Dose* 81 MG TAB.EC PO SCH (08:34)
[2016-10-22] MEDS: Nystatin SUSPENSION* 100000 UNITS/ML 5 ML UDC PO SCH ×4 (08:50→20:14)
[2016-10-22] MEDS: Heparin VIAL(*) 5000 UNITS/ML VIAL (FIVE THOUSAND) SUBCUT SCH ×2 (08:50→20:14)
[2016-10-22] MEDS ORDERED: Furosemide TAB* 20 MG PO ONE (09:20)
--- NOTE | 2016-10-22 11:43 | CONS ---
CARDIOLOGY CONSULTATION: DATE OF CONSULT: 10/22/16 REASON FOR CONSULT: Asked by the hospitalist service to see Ms. Whitley for evaluation of significantly reduced left ventricular systolic function with low - level abnormal troponins. HISTORY OF PRESENT ILLNESS: The patient is a pleasant 55-year-old slightly anxious female who was admitted to the intensive care unit back on 10/18/16, felt to have taken too much of her chronic medications for chronic neck pain. She was found unresponsive by her boyfriend and brought to the emergency room where naloxone was given but failed to revive her. In the emergency room, she was reportedly unresponsive to verbal commands, but had adequate coughing, gag reflex, and intubation was deferred. CAT scan of the brain had revealed no intracranial hemorrhage and the patient was admitted to the intensive care unit with diagnosis of altered mental status. The patient was managed by Dr. Margarito Vera, who noted that she had suggestive evidence of rhabdomyolysis with an increased creatinine and a markedly increased CPK and gave her aggressive fluids. Of note, EKG done on the day of admission revealed biphasic T waves in V1, V2, and V3. Over the course of time, those EKGs have gone on to show T- wave inversion in V1 and V2. Sequential troponins had revealed an initial troponin of 1.41 with a total CPK of 2359, no MB was performed on that sample. The followup total CPK on a day later was 731 with a troponin of 0.23 with the total CPKs going down and troponin increasing to 0.37 and then down to 0.34 and 0.22. Overtime, the creatinine had dramatically improved from 2.1 down to 0.49 with aggressive hydration. In looking at her fluid resuscitation, she is currently some 12 L positive. An echocardiogram was obtained on 10/21/16 and revealed moderately decreased EF at 25% to 30% with segmental wall motion abnormalities involving multiple regions with perhaps the only area preserved the proximal to mid inferior wall. There was reported mild mitral regurgitation, but no mitral valve prolapse. There was trace- to-mild tricuspid regurgitation. She also was noted to have a CT scan when she complained of abdominal discomfort on 10/21/16 and that showed small bilateral pleural effusions and bibasilar lower lobe infiltrates, a small amount of ascites. Because of the abnormal echocardiogram with LV function, we were asked to see the patient. CARDIAC RISK FACTORS: In reviewing the patient's medical history, she specifically denies any prior history herself of having heart problems other than being told 6 to 7 years ago she had mitral valve prolapse, she believes as an outpatient. She specifically denied any history of hypertension, hyperlipidemia, or diabetes. She smoked for 26 years, 1 pack a day, but quit 10 years ago and in the family she had a mother who from a stroke after open heart surgery in her 60s. She believes both her father and her brother have mitral valve prolapse. Regarding the patient's symptoms for coronary artery disease, she walks her dog routinely, she is able to go up and down the stairs without provoking any chest , jaw, or arm discomfort, or shortness of breath. [facility] [employer] [facility]. She noticed that she does get somewhat short of breath if she gets emotionally upset. PAST MEDICAL HISTORY: Includes a question of asthma for which she was given an inhaler. She was treated for depression and significant pain in her neck and she has insomnia. CURRENT MEDICATIONS: When I see her in the hospital include: 1. Albuterol inhaler. 2. P.r.n. aspirin 81 mg a day. 3. Cymbalta 60 mg a day. 4. Heparin subcu. 5. She was on Ringer's lactate at 125 an hour. 6. Levofloxacin 500 mg q.24 hours. 7. Lorazepam p.r.n. for anxiety. 8. Flagyl intravenous q.8 hours. 9. Morphine sulfate. 10. Nystatin swish. ALLERGIES: As listed as being allergic to CONTRAST used for myelography. FAMILY HISTORY: Mother from a stroke after bypass surgery in her 60s, father with mitral valve prolapse, brother with mitral valve prolapse. SOCIAL HISTORY: She is unmarried. She has no children. She does not abuse alcohol. REVIEW OF SYSTEMS: The patient denies any recent weight loss, night sweats, or fevers. She has no prior history of stroke or TIA. She has no history of profound bleeding or bruising. She has the asthmas as mentioned. Cardiac: See above. GI: She has no history of gastroesophageal reflux, ulcer, or hernia. : No history of frequent urinary tract infections. Musculoskeletal : She has problems with neck issues and is on chronic pain medication. Psychiatric: She has depression. PHYSICAL EXAM: When I see her now reveals an anxious female, in no acute distress. Blood pressure 128/79, pulse is 88 and regular, respirations are 18, O2 saturation is in the high 90s on 2 L nasal cannula. Neck is supple. I cannot appreciate increased JVP. Carotid has normal upstroke and volume without bruits. Conjunctivae are pink. Sclerae clear. Lungs reveal no accessory muscle usage. There is fair excursion. There are minimal crackles noted bilaterally in the bases. No active rhonchi. Heart reveals no visible heaves. No palpable heaves or thrills. Normal S1 and S2. No significant S3 or S4 gallop. No significant systolic or diastolic murmur. Abdomen is soft and nontender. Extremities: Without significant pitting edema. Peripheral pulses are intact. Femoral pulse present without bruits. Neuro: The patient seems alert and oriented. Musculoskeletal: Moves all extremities appropriate. Psychological: The patient is anxious in general. DIAGNOSTIC STUDIES/LAB DATA: Laboratory results from 10/22/16, sodium 138, potassium 3.4, chloride 107, bicarb 26, BUN and creatinine 7 and 0.49, calcium 7.7, magnesium 1.8. White count 10,200, hemoglobin and hematocrit 10.9 and 42, with platelet count of 208,000. INR 1.0. Toxicology on admission was abnormal for marijuana, also for benzodiazepines and opiates. Most recent chest x-ray was from 10/19/16 showing right upper and right lower pneumonia. OVERALL ASSESSMENT: Ramona Whitley presents now with an episode of unresponsiveness, probably from overmedication, being treated for potential pneumonia. Her microbiology results have not showed any blood cultures positive. She has reversed renal insufficiency and I believe at this point in time if anything, given her left ventricular dysfunction, we need to stop the IV hydration. Consideration for starting her on medications for left ventricular dysfunction should also be made and we will institute them. In the meantime, clearly the best way to differentiate the cause of the severe left ventricular dysfunction as to whether it is secondary to a stress of the acute illness such as a Takotsubo syndrome versus presence of coronary artery disease would be to perform cardiac catheterization. The risks and benefits were explained to her and she was significantly anxious about this and wants to think it over and is not sure she wants this. If she does wish it, we will need to prep her 1206 and 1 hour before with prednisone 50 mg and Benadryl 25 mg. We will await her decision regarding that and in the meantime, we will start instituting basic medical management for left ventricular dysfunction. At this point in time, we will give her a low dose of diuretics as well as in light of the presence of the crackles bilaterally. With her albumin being this low, clearly she will third space most of the fluid. Thank you very much for having asked us to see her and we will await her decision. CC: Dr. Main Davalos * [id number]/CPS #: [id number] MTDD
[2016-10-22] MEDS: Captopril TAB* 12.5 MG PO SCH ×2 (14:23→20:07)
[2016-10-22] MEDS: Levofloxacin 500 MG IVPREMIX(* 500 MG/100 ML BAG IVPB SCH (15:36)
[2016-10-22] MEDS ORDERED: Potassium Chlor TAB* 20 MEQ TAB.ER PO ONE (16:00)
--- NOTE | 2016-10-22 18:02 | PN ---
Subjective Date of Service: 10/22/16 Interval History: Patient seen and examined at bedside. States, "I'm cold" and expresses concern that she is "pooping too much." She denies abdominal pain, n/v, CP, SOB, fever/ chills. She reports that she is still "thinking about" the cardiac catheterization. She reports poor sleep and wants to rest. Family History: Unchanged from Admission Social History: Unchanged from Admission Past Medical History: Unchanged from Admission Objective Active Medications: Albuterol (Ventolin Hfa Inhaler*) 2 puff INH Q4H PRN PRN Reason: COUGH Aspirin (Aspirin Ec Low Dose*) 81 mg PO DAILY [facility] Last Admin: 10/22/16 08:34 Dose: 81 mg Captopril (Capoten Tab*) 6.25 mg PO TID [facility] Last Admin: 10/22/16 14:23 Dose: 6.25 mg Diphenhydramine HCl (Benadryl Po*) 25 mg PO Q6H PRN PRN Reason: Allergy Symptoms Stop: 10/23/16 07:01 Duloxetine HCl (Cymbalta Cap*) 60 mg PO DAILY [facility] Last Admin: 10/22/16 08:33 Dose: 60 mg Heparin Sodium (Porcine) (Heparin Vial(*)) 5,000 units SUBCUT Q12HR [facility] Last Admin: 10/22/16 08:50 Dose: Not Given Metronidazole/Sodium Chloride (Flagyl 500 Mg Ivpb*) 500 mg in 100 mls @ 100 mls /hr IVPB Q8H [facility] Last Admin: 10/22/16 14:26 Dose: 100 mls/hr Levofloxacin/Dextrose (Levaquin 500 Mg Ivpremix(*)) 500 mg in 100 mls @ 100 mls /hr IVPB Q24H [facility] Last Admin: 10/22/16 15:36 Dose: 100 mls/hr Sodium Chloride (Ns 0.9% 1000 Ml*) 1,000 mls @ 75 mls/hr IV .per rate [facility] Lorazepam (Ativan Tab(*)) 1 mg PO Q6H PRN PRN Reason: ANXIETY Last Admin: 10/22/16 00:25 Dose: 1 mg Metoprolol Tartrate (Lopressor Tab*) 12.5 mg PO Q12HR [facility] Morphine Sulfate (Ms Contin(*)) 15 mg PO Q12H [facility] Last Admin: 10/22/16 14:23 Dose: 15 mg Nystatin (Nystatin Suspension*) 200,000 units PO QID [facility] Last Admin: 10/22/16 16:35 Dose: 200,000 units Prednisone (Deltasone Tab*) 40 mg PO Q6H [facility] Stop: 10/23/16 07:01 Vital Signs 10/21/16 10/21/16 10/22/16 19:38 20:00 00:00 Temperature 98.3 F Pulse Rate 99 Respiratory 16 16 Rate Blood Pressure 132/85 (mmHg) O2 Sat by Pulse 95 90 96 Oximetry 10/22/16 10/22/16 10/22/16 00:25 01:25 01:30 Temperature Pulse Rate 92 Respiratory 18 16 Rate Blood Pressure 131/72 (mmHg) O2 Sat by Pulse 96 Oximetry 10/22/16 10/22/16 10/22/16 02:25 03:25 03:55 Temperature 98.6 F Pulse Rate 86 Respiratory 18 18 16 Rate Blood Pressure 119/71 (mmHg) O2 Sat by Pulse 97 Oximetry 10/22/16 10/22/16 10/22/16 07:44 08:00 09:08 Temperature 98.2 F Pulse Rate 88 Respiratory 18 18 Rate Blood Pressure 128/79 (mmHg) O2 Sat by Pulse 96 95 95 Oximetry 10/22/16 10/22/16 10/22/16 11:16 14:23 15:48 Temperature 97.4 F 98.4 F Pulse Rate 86 93 Respiratory 16 16 16 Rate Blood Pressure 134/74 136/64 (mmHg) O2 Sat by Pulse 97 95 Oximetry 10/22/16 10/22/16 10/22/16 16:00 16:23 16:46 Temperature Pulse Rate Respiratory 16 Rate Blood Pressure (mmHg) O2 Sat by Pulse 95 95 Oximetry Oxygen Devices in Use Now: Nasal Cannula - 2L NC Appearance: Female patient, lying in bed, relatively lethargic but arousable, appears to be resting comfortably Eyes: PERRLA Ears/Nose/Mouth/Throat: Clear Oropharnyx, Mucous Membranes Moist Respiratory: Symmetrical Chest Expansion and Respiratory Effort, Clear to Auscultation - right rales noted, left side more clear Cardiovascular: NL Sounds; No Murmurs; No JVD, RRR Abdominal: - - BS present, diffuse tenderness with palpation, abd soft and nondistended Extremities: No Edema Skin: No Rash or Ulcers Neurological: Alert and Oriented x 3 Lines/Tubes/Other Access: Clean, Dry and Intact Peripheral IV Result Diagrams: 10/22/16 05:44 10/22/16 05:44 Additional Lab and Data: Microbiology and Other Data: Microbiology 10/18/16 11:55 Urine Culture - Final Urine No Growth (<1,000 CFU/mL) 10/18/16 11:55 Nasal Screen MRSA (PCR)([facility]) - Final Nasal Mrsa Negative Assess/Plan/Problems-Billing Assessment: Ms. Whitley is a 55 yo female with PMH significant for history of suicide attempts and opiate dependence who presented to the emergency room with altered mental status and low-grade rhabdomyolysis in which she was intubated in the ED on arrival. Possible accidental overdose. Also found to have right upper and lower lobe pneumonia. - Patient Problems (1) Sepsis Current Visit: Yes Status: Acute Comment: Improved today with VS, presentation. Abdominal pain also improved. Suspect source respiratory vs. GI Patient was restarted on MS contin, which may have helped with potential detox. Continue MS contin, hold for sedation. Leukocytosis improved. Recheck CBC in AM. Continue levofloxacin, metronidazole Clear liquid diet (2) Elevated troponin Current Visit: Yes Status: Acute Code(s): R79.89 - OTHER SPECIFIED ABNORMAL FINDINGS OF BLOOD CHEMISTRY SNOMED Code(s): 506875704 Comment: Echocardiogram shows multiple regional wall abnormalities, decreased LV function and EF 25-30%. Appreciate cardiology consult. Patient started on SILVIO and beta edilia. Plan for cardiac cath in AM; pre med required due to allergy. EKG changes noted with Twave inversion V1, V2. Patient continues to deny chest pain. (3) Pneumonia Code(s): J18.9 - PNEUMONIA, UNSPECIFIED ORGANISM Comment: - Chest xray - right upper and lower lobe PNA - suspect aspiration. - Leukocytosis resolved, elevated CRP, procalcitonin on admission was 3.5, afebrile now, - Blood cultures negative. Legionella and Strep pneumoniae urine antigens pending, sputum culture pending - Continue levaquin, switch back to IV (4) Acute renal failure due to rhabdomyolysis Code(s): N17.9 - ACUTE KIDNEY FAILURE, UNSPECIFIED; D21.9 - BENIGN NEOPLASM OF CONNECTIVE AND OTHER SOFT TISSUE, UNSP Comment: - Resolved (5) Electrolyte abnormality Status: Acute Code(s): E87.8 - OTH DISORDERS OF ELECTROLYTE AND FLUID BALANCE , NEC Comment: - Replaced magnesium and potassium; continue to trend. (6) Non-traumatic rhabdomyolysis Code(s): M62.82 - RHABDOMYOLYSIS Comment: - CK WNL (7) Depression Code(s): F32.9 - MAJOR DEPRESSIVE DISORDER, SINGLE EPISODE, UNSPECIFIED Comment: - Continue Cymbalta. (8) Chronic pain Code(s): G89.29 - OTHER CHRONIC PAIN Comment: - Suspect the pt is withdrawing - Continue MS Contin 15 mg po BID, hold for sedation. Plan to titrate back to home dosage as pt tolerates. Will keep at 15 today, as patient is receiving diphenhydramine pre-medication prior to cath (9) DVT prophylaxis Code(s): QUL3286 - Comment: SQ heparin, SCDs (10) Full code status Code(s): Z78.9 - OTHER SPECIFIED HEALTH STATUS Status and Disposition: Inpatient. Estimated LOS greater than 2 days. Patient should be evaluated by Psych when medically stable - Dr. Raymundo is following peripherally, plan to contact him when pt is stable for an evaluation.
[2016-10-22] MEDS: predniSONE TAB* 20 MG PO SCH (18:56)
[2016-10-22] MEDS ORDERED: diPHENhydraMINE PO* 25 MG PO PRN (19:00)
[2016-10-22] MEDS ORDERED: diPHENhydraMINE PO* 25 MG PO ONE (20:00)
[2016-10-22] MEDS: Metoprolol Tartrate TAB* 25 MG PO SCH (20:06)
[2016-10-22] MEDS ORDERED: Magnesium Sulfate 2 GM IV* 2 GM/50 ML BAG IVPB ONE (20:21)
[2016-10-22] MEDS ORDERED: Nitroglycerin TAB 0.4 MG* 0.4 MG TAB SL ONE (22:54)
[2016-10-22] MEDS ORDERED: Nitroglycerin TAB 0.4 MG* 0.4 MG TAB ONE (22:59)
[2016-10-23] MEDS: diPHENhydraMINE PO* 25 MG PO SCH ×2 (01:07→07:12)
[2016-10-23] MEDS: Morphine TAB Extended Release (*) 15 MG TAB.ER PO SCH ×2 (01:08→13:16)
[2016-10-23] MEDS: predniSONE TAB* 20 MG PO SCH ×2 (01:10→07:14)
[2016-10-23] MEDS: metroNIDAZOLE IV 500 MG/100ML* 500 MG/100 ML BAG IVPB SCH ×3 (05:06→20:29)
[2016-10-23 05:30] LABS: Hematocrit 36 % (35-47); Mean Corpuscular HGB Conc 34 g/dl (31-36); Mean Corpuscular Hemoglobin 29 pg (27-31); Mean Corpuscular Volume 87 fL (80-97); Mean Platelet Volume 9 um3 (7.4-10.4); Red Blood Count 4.11 10^6/ul (4.0-5.4); Red Cell Distribution Width 13 % (10.5-15); White Blood Count 7.6 10^3/ul (3.5-10.8)
[2016-10-23 05:38] LABS: Add Diff/Slide Review? Slide Review Added; Comments Flag Yes
[2016-10-23 05:47] LABS: Calcium 8.4 mg/dL (8.6-10.3); EGFR African American 164.1 (>60); EGFR Non-African American 127.6 (>60); Potassium 3.3 mmol/L (3.5-5.0)
[2016-10-23 06:04] LABS: Immature Granulocytes 4 % (0-9); Metamyelocytes % 1 % (0-2); Myelocytes % 1 % (0-1); Neutrophil % 79 % (38-83); Reactive Lymph % 2 % (0-6)
[2016-10-23 06:05] LABS: RBC Morphology Normal (Normal)
[2016-10-23] MEDS ORDERED: NS 0.9% 1000 ML* 1,000 ML IV SCH (07:00)
[2016-10-23] MEDS ORDERED: Potassium Chlor TAB* 20 MEQ TAB.ER PO ONE (07:04)
[2016-10-23] MEDS: Aspirin EC Low Dose* 81 MG TAB.EC PO SCH (07:12)
[2016-10-23] MEDS: DULoxetine DR CAP* 60 MG CAP.DR PO SCH (07:13)
[2016-10-23] MEDS: Captopril TAB* 12.5 MG PO SCH ×3 (07:13→20:24)
[2016-10-23] MEDS: Metoprolol Tartrate TAB* 25 MG PO SCH ×2 (07:14→20:25)
[2016-10-23] MEDS: Heparin VIAL(*) 5000 UNITS/ML VIAL (FIVE THOUSAND) SUBCUT SCH ×2 (07:19→20:37)
[2016-10-23] MEDS: Nystatin SUSPENSION* 100000 UNITS/ML 5 ML UDC PO SCH ×4 (09:33→20:34)
--- NOTE | 2016-10-23 10:39 | PN ---
Subjective Date of Service: 10/23/16 Interval History: Patient seen and examined at bedside. Pt is drowsy d/t the Benadryl she has been receiving in preparation for her cardiac cath today. Denies fever, chills, shortness of breath, N/V. Pt states she is having chest discomfort and points to her left upper abdomen. Pt states that she "hurts all over". Tele: Sinus rhythm, rate 70-80's. Few PVCs. Family History: Unchanged from Admission Social History: Unchanged from Admission Past Medical History: Unchanged from Admission Objective Active Medications: Albuterol (Ventolin Hfa Inhaler*) 2 puff INH Q4H PRN Reason: COUGH Aspirin (Aspirin Ec Low Dose*) 81 mg PO DAILY [facility] Captopril (Capoten Tab*) 6.25 mg PO TID [facility] Duloxetine HCl (Cymbalta Cap*) 60 mg PO DAILY [facility] Heparin Sodium (Porcine) (Heparin Vial(*)) 5,000 units SUBCUT Q12HR [facility] Metronidazole/Sodium Chloride (Flagyl 500 Mg Ivpb*) 500 mg in 100 mls @ 100 mls /hr IVPB Q8H [facility] Levofloxacin/Dextrose (Levaquin 500 Mg Ivpremix(*)) 500 mg in 100 mls @ 100 mls /hr IVPB Q24H [facility] Sodium Chloride (Ns 0.9% 1000 Ml*) 1,000 mls @ 75 mls/hr IV .per rate [facility] Lorazepam (Ativan Tab(*)) 1 mg PO Q6H PRN Reason: ANXIETY Metoprolol Tartrate (Lopressor Tab*) 12.5 mg PO Q12HR [facility] Morphine Sulfate (Ms Contin(*)) 15 mg PO Q12H [facility] Nystatin (Nystatin Suspension*) 200,000 units PO QID [facility] Vital Signs 10/22/16 10/22/16 10/22/16 11:16 14:23 15:48 Temperature 97.4 F 98.4 F Pulse Rate 86 93 Respiratory 16 16 16 Rate Blood Pressure 134/74 136/64 (mmHg) O2 Sat by Pulse 97 95 Oximetry 10/22/16 10/22/16 10/22/16 16:00 16:23 16:46 Temperature Pulse Rate Respiratory 16 Rate Blood Pressure (mmHg) O2 Sat by Pulse 95 95 Oximetry 10/22/16 10/22/16 10/22/16 19:50 20:00 20:21 Temperature 98.3 F Pulse Rate 90 Respiratory 16 16 16 Rate Blood Pressure 123/68 (mmHg) O2 Sat by Pulse 95 95 Oximetry 10/22/16 10/22/16 10/22/16 22:21 23:19 23:54 Temperature 98.9 F Pulse Rate 87 Respiratory 16 16 Rate Blood Pressure 125/68 (mmHg) O2 Sat by Pulse 95 95 Oximetry 10/23/16 10/23/16 10/23/16 00:00 01:07 01:08 Temperature Pulse Rate Respiratory 16 16 Rate Blood Pressure (mmHg) O2 Sat by Pulse 95 Oximetry 10/23/16 10/23/16 10/23/16 01:12 03:07 03:08 Temperature Pulse Rate Respiratory 16 16 Rate Blood Pressure (mmHg) O2 Sat by Pulse 92 Oximetry 10/23/16 10/23/16 10/23/16 03:53 07:12 07:45 Temperature 98.7 F 98.1 F Pulse Rate 87 87 Respiratory 16 16 16 Rate Blood Pressure 140/70 139/81 (mmHg) O2 Sat by Pulse 94 97 Oximetry Oxygen Devices in Use Now: Nasal Cannula - 2L NC Appearance: NAD, laying in bed. Eyes: No Scleral Icterus, PERRLA Ears/Nose/Mouth/Throat: NL Teeth, Lips, Gums, Mucous Membranes Moist Neck: NL Appearance and Movements; NL JVP, Trachea Midline Respiratory: Symmetrical Chest Expansion and Respiratory Effort, - - Lung sounds with crackles on the right Cardiovascular: NL Sounds; No Murmurs; No JVD, RRR Abdominal: - - Bowel sounds present, diffuse tenderness to palpation, abdomen soft and non distended Extremities: No Edema Skin: No Rash or Ulcers Neurological: NL Muscle Strength and Tone, - - Alert and Oriented to Person and Place. Lines/Tubes/Other Access: Clean, Dry and Intact Peripheral IV - site benign Nutrition: Taking PO's Result Diagrams: 10/23/16 05:04 10/23/16 05:04 Additional Lab and Data: Microbiology and Other Data: Microbiology 10/18/16 11:55 Urine Culture - Final Urine No Growth (<1,000 CFU/mL) 10/18/16 11:55 Nasal Screen MRSA (PCR)([facility]) - Final Nasal Mrsa Negative Assess/Plan/Problems-Billing Assessment: Ms. Whitley is a 55 yo female with PMH significant for history of suicide attempts and opiate dependence who presented to the emergency room with altered mental status and low-grade rhabdomyolysis in which she was intubated in the ED on arrival. Possible accidental overdose. Also found to have right upper and lower lobe pneumonia. - Patient Problems (1) Altered mental status Code(s): R41.82 - ALTERED MENTAL STATUS, UNSPECIFIED SNOMED Code(s): 908412471 Comment: - Overdose of home medications, ? accidental. - Brain CT - no acute findings - Psych consult pending (2) Pneumonia Code(s): J18.9 - PNEUMONIA, UNSPECIFIED ORGANISM SNOMED Code(s): 708009205 Comment: - Chest xray - right upper and lower lobe PNA - suspect aspiration. - Leukocytosis resolved, elevated CRP, procalcitonin on admission was 3.5, afebrile now, - Blood cultures negative. Legionella and Strep pneumoniae urine antigens pending, sputum culture pending - Continue levaquin and Flagyl (3) Non-traumatic rhabdomyolysis Code(s): M62.82 - RHABDOMYOLYSIS SNOMED Code(s): 819384790 Comment: - CK WNL (4) Elevated troponin Code(s): R79.89 - OTHER SPECIFIED ABNORMAL FINDINGS OF BLOOD CHEMISTRY SNOMED Code(s): 343621591 Comment: Echocardiogram shows multiple regional wall abnormalities, decreased LV function and EF 25-30%. Appreciate cardiology consult. Patient started on SILVIO and beta edilia. Plan for cardiac cath today; pre med required due to allergy. EKG changes noted with Twave inversion V1, V2. (5) Electrolyte abnormality Code(s): E87.8 - OTH DISORDERS OF ELECTROLYTE AND FLUID BALANCE, NEC SNOMED Code(s): 907066247 Comment: - Hypomagnesium resolved. - Hypokalemia. Received replacement today. Continue to trend. (6) Elevated C-reactive protein (CRP) Code(s): R79.82 - ELEVATED C-REACTIVE PROTEIN (CRP) SNOMED Code(s): 416576858 Comment: - Leukocytosis resolved - Afebrile - Chest xray - Right upper and lower lobe PNA (7) Depression Code(s): F32.9 - MAJOR DEPRESSIVE DISORDER, SINGLE EPISODE, UNSPECIFIED SNOMED Code(s): 86285052 Comment: - Continue Cymbalta. (8) DVT prophylaxis Code(s): ZSV3539 - SNOMED Code(s): 106829311 Comment: SQ heparin, SCDs (9) Full code status Code(s): Z78.9 - OTHER SPECIFIED HEALTH STATUS SNOMED Code(s): 573454266 Status and Disposition: Inpatient. Estimated LOS greater than 2 days. Patient should be evaluated by Psych when medically stable - Dr. Raymundo is following peripherally, plan to contact him when pt is stable for an evaluation.
[2016-10-23] MEDS: Levofloxacin 500 MG IVPREMIX(* 500 MG/100 ML BAG IVPB SCH (14:41)
[2016-10-23] MEDS: LORazepam TAB(*) 1 MG PO PRN (15:31)
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
[2016-10-23] MEDS ORDERED: LORazepam TAB(*) 1 MG PO ONE (19:50)
[2016-10-24] MEDS: Morphine TAB Extended Release (*) 15 MG TAB.ER PO SCH ×2 (01:53→13:07)
[2016-10-24] MEDS: metroNIDAZOLE IV 500 MG/100ML* 500 MG/100 ML BAG IVPB SCH ×2 (04:27→13:15)
[2016-10-24 06:17] LABS: BUN/Creatinine Ratio 15.8 (8-20); Calcium 8.1 mg/dL (8.6-10.3); EGFR African American 141.1 (>60); EGFR Non-African American 109.7 (>60)
[2016-10-24] MEDS ORDERED: diPHENhydraMINE PO* 25 MG PO ONE (06:30)
[2016-10-24] MEDS ORDERED: predniSONE TAB* 20 MG PO ONE (06:30)
[2016-10-24] MEDS ORDERED: fentaNYL* 50 MCG/ML 2 ML VIAL (100 MCG VIAL) ONE (10:12)
[2016-10-24] MEDS ORDERED: Iodixanol* (CONTRAST) 320 MG/ML 100 ML SDV ONE (10:13)
[2016-10-24] MEDS ORDERED: Midazolam* 1 MG/ML 5 ML VIAL (5 MG) ONE (10:13)
[2016-10-24] MEDS ORDERED: Lidocaine 1% INJ* 10 MG/ML 30 ML SDV ONE (10:13)
[2016-10-24] MEDS ORDERED: Heparin 2 UNITS/ML IVPREMIX* 2,000 ML IV ONE (10:13)
[2016-10-24] MEDS ORDERED: NS 0.9% 1000 ML* 1,000 ML IV SCH (12:15)
[2016-10-24] MEDS: Captopril TAB* 12.5 MG PO SCH ×2 (12:41→14:48)
[2016-10-24] MEDS: Potassium Chloride LIQUID* 20 MEQ PACKET PO SCH ×2 (13:05→13:07)
[2016-10-24] MEDS: DULoxetine DR CAP* 60 MG CAP.DR PO SCH (13:06)
[2016-10-24] MEDS: Nystatin SUSPENSION* 100000 UNITS/ML 5 ML UDC PO SCH ×5 (13:06→21:32)
[2016-10-24] MEDS: Aspirin EC Low Dose* 81 MG TAB.EC PO SCH (13:08)
[2016-10-24] MEDS: Metoprolol Tartrate TAB* 25 MG PO SCH ×2 (13:08→21:18)
[2016-10-24] MEDS: Heparin VIAL(*) 5000 UNITS/ML VIAL (FIVE THOUSAND) SUBCUT SCH ×2 (14:11→21:23)
[2016-10-24] MEDS: Levofloxacin 500 MG IVPREMIX(* 500 MG/100 ML BAG IVPB SCH (14:50)
[2016-10-24] MEDS ORDERED: Levofloxacin TAB* 500 MG PO SCH (16:00)
[2016-10-24] MEDS ORDERED: Polyethylene Glycol 3350* 17 GM PACKET PO PRN (16:57)
--- NOTE | 2016-10-24 16:58 | PN ---
Subjective Date of Service: 10/24/16 Interval History: Patient seen and examined at bedside. Pt states that she continue to have "gas pain" and some loose stools. She feels like she has not had a "good BM". Denies fever, chills, shortness of breath, chest discomfort, N/V/D. Pt is anxious to get home. Tele: Sinus 80-90's. Few PVCs. Family History: Unchanged from Admission Social History: Unchanged from Admission Past Medical History: Unchanged from Admission Objective Active Medications: Albuterol (Ventolin Hfa Inhaler*) 2 puff INH Q4H PRN Reason: COUGH Aspirin (Aspirin Ec Low Dose*) 81 mg PO DAILY [facility] Duloxetine HCl (Cymbalta Cap*) 60 mg PO [facility] Heparin Sodium (Porcine) (Heparin Vial(*)) 5,000 units SUBCUT Q12HR KARRIE Levofloxacin (Levaquin Tab*) 500 mg PO 1600 KARRIE Lorazepam (Ativan Tab(*)) 1 mg PO Q6H PRN Reason: ANXIETY Metoprolol Succinate (Toprol Xl Tab*) 25 mg PO DAILY [facility] Metoprolol Tartrate (Lopressor Tab*) 12.5 mg PO Q12HR KARRIE Stop: 10/24/16 21:30 Metronidazole (Flagyl Tab*) 500 mg PO TID K[facility] Morphine Sulfate (Ms Contin(*)) 15 mg PO Q12H KARRIE Nystatin (Nystatin Suspension*) 200,000 units PO QID KARRIE Potassium Chloride (Klor-Con Liquid*) 40 meq PO DAILY [facility] Potassium Chloride (Klor Con Er Tab*) 40 meq PO ONCE ONE Stop: 10/24/16 20:01 Vital Signs 10/23/16 10/23/16 10/23/16 17:31 19:36 20:00 Temperature 98.7 F Pulse Rate 105 Respiratory 15 16 16 Rate Blood Pressure 117/83 (mmHg) O2 Sat by Pulse 95 95 Oximetry 10/23/16 10/23/16 10/24/16 20:27 23:58 00:00 Temperature 99.5 F Pulse Rate 85 Respiratory 16 16 Rate Blood Pressure 133/72 (mmHg) O2 Sat by Pulse 92 92 Oximetry 10/24/16 10/24/16 10/24/16 01:53 03:04 04:18 Temperature 99.2 F Pulse Rate 83 Respiratory 16 16 Rate Blood Pressure 149/65 (mmHg) O2 Sat by Pulse 95 94 Oximetry 10/24/16 10/24/16 10/24/16 06:31 07:27 07:53 Temperature 98.5 F Pulse Rate 81 Respiratory 16 16 26 Rate Blood Pressure 158/76 (mmHg) O2 Sat by Pulse 97 Oximetry 10/24/16 10/24/16 10/24/16 08:00 11:55 11:56 Temperature Pulse Rate 80 79 Respiratory 26 12 Rate Blood Pressure 163/78 (mmHg) O2 Sat by Pulse 94 95 95 Oximetry 10/24/16 10/24/16 10/24/16 12:00 12:15 12:30 Temperature Pulse Rate 77 83 76 Respiratory 15 19 17 Rate Blood Pressure 161/79 163/82 163/81 (mmHg) O2 Sat by Pulse 95 97 95 Oximetry 10/24/16 10/24/16 10/24/16 13:00 13:07 13:30 Temperature Pulse Rate 83 93 Respiratory 23 18 30 Rate Blood Pressure 159/73 160/81 (mmHg) O2 Sat by Pulse 95 92 Oximetry 10/24/16 14:00 Temperature Pulse Rate 85 Respiratory 22 Rate Blood Pressure 156/80 (mmHg) O2 Sat by Pulse 91 Oximetry Oxygen Devices in Use Now: Nasal Cannula - 2.5 L Appearance: NAD, laying in bed Eyes: No Scleral Icterus, PERRLA Ears/Nose/Mouth/Throat: NL Teeth, Lips, Gums, Mucous Membranes Moist Neck: NL Appearance and Movements; NL JVP, Trachea Midline Respiratory: Symmetrical Chest Expansion and Respiratory Effort, Clear to Auscultation Cardiovascular: NL Sounds; No Murmurs; No JVD, RRR Abdominal: - - Bowel sounds present, tenderness in lower abdomen, abdomen soft. Extremities: - - 1+ edema to bilateral feet Skin: No Rash or Ulcers Neurological: Alert and Oriented x 3, NL Muscle Strength and Tone Lines/Tubes/Other Access: Clean, Dry and Intact Peripheral IV - site benign Nutrition: Taking PO's Result Diagrams: 10/23/16 05:04 10/24/16 05:26 Additional Lab and Data: Microbiology and Other Data: Microbiology 10/18/16 11:55 Urine Culture - Final Urine No Growth (<1,000 CFU/mL) 10/18/16 11:55 Nasal Screen MRSA (PCR)(CRISTINA) - Final Nasal Mrsa Negative Assess/Plan/Problems-Billing Assessment: Ms. Whitley is a 55 yo female with PMH significant for history of suicide attempts and opiate dependence who presented to the emergency room with altered mental status and low-grade rhabdomyolysis in which she was intubated in the ED on arrival. Possible accidental overdose. Also found to have right upper and lower lobe pneumonia. - Patient Problems (1) Altered mental status Code(s): R41.82 - ALTERED MENTAL STATUS, UNSPECIFIED SNOMED Code(s): 386539396 Comment: - Overdose of home medications, ? accidental. - Brain CT - no acute findings - Psych consult pending (2) Pneumonia Code(s): J18.9 - PNEUMONIA, UNSPECIFIED ORGANISM SNOMED Code(s): 850781878 Comment: - Chest xray - right upper and lower lobe PNA - suspect aspiration. - Leukocytosis resolved, elevated CRP, procalcitonin on admission was 3.5, afebrile now, - Blood cultures negative. Legionella and Strep pneumoniae urine antigens pending, sputum culture pending - Continue levaquin and Flagyl, change to PO (3) Non-traumatic rhabdomyolysis Code(s): M62.82 - RHABDOMYOLYSIS SNOMED Code(s): 875077801 Comment: - CK WNL (4) Elevated troponin Code(s): R79.89 - OTHER SPECIFIED ABNORMAL FINDINGS OF BLOOD CHEMISTRY SNOMED Code(s): 101421039 Comment: Echocardiogram shows multiple regional wall abnormalities, decreased LV function and EF 25-30%. Appreciate cardiology consult. Patient started on SILVIO and beta edilia. EKG changes noted with Twave inversion V1, V2. S/P cardiac cath, "clean" and improved LV function Nonischemic cardiomyopathy resolved (5) Electrolyte abnormality Code(s): E87.8 - OTH DISORDERS OF ELECTROLYTE AND FLUID BALANCE, NEC SNOMED Code(s): 177346835 Comment: - Hypomagnesium resolved. Will recheck today - Hypokalemia. Received replacement today. Continue to trend. (6) Elevated C-reactive protein (CRP) Code(s): R79.82 - ELEVATED C-REACTIVE PROTEIN (CRP) SNOMED Code(s): 181667185 Comment: - Leukocytosis resolved - Afebrile - Chest xray - Right upper and lower lobe PNA (7) Depression Code(s): F32.9 - MAJOR DEPRESSIVE DISORDER, SINGLE EPISODE, UNSPECIFIED SNOMED Code(s): 97706062 Comment: - Continue Cymbalta. (8) DVT prophylaxis Code(s): WHD7491 - SNOMED Code(s): 617398450 Comment: SQ heparin, SCDs (9) Full code status Code(s): Z78.9 - OTHER SPECIFIED HEALTH STATUS SNOMED Code(s): 683960846 Status and Disposition: Inpatient. Estimated LOS greater than 2 days. Patient should be evaluated by Psych when medically stable - Dr. Raymundo is following peripherally, plan to contact him when pt is stable for an evaluation.
[2016-10-24 17:24] LABS: Magnesium 1.7 mg/dL (1.9-2.7)
[2016-10-24] MEDS ORDERED: Magnesium Sulfate 2 GM IV* 2 GM/50 ML BAG IVPB ONE (17:27)
[2016-10-24] MEDS ORDERED: Potassium Chlor TAB* 20 MEQ TAB.ER PO ONE (20:00)
[2016-10-24] MEDS: metroNIDAZOLE TAB* 250 MG PO SCH (21:17)
[2016-10-25] MEDS: Morphine TAB Extended Release (*) 15 MG TAB.ER PO SCH ×2 (01:56→14:00)
[2016-10-25] MEDS: LORazepam TAB(*) 1 MG PO PRN (01:57)
--- NOTE | 2016-10-25 02:23 | CATH ---
CARDIAC CATHETERIZATION REPORT: DATE OF PROCEDURE: 10/24/16 - ROOM #449 INDICATION FOR PROCEDURE: The patient presenting with pneumonia and possible overdose with markedly reduced ejection fraction on echocardiography with reported LVEF of 25% to 30% with focal ST changes in the early precordial leads to rule out the presence of coronary artery disease. The patient was interviewed and examined on the floor of the hospital where the risks and benefits were explained. She wished to proceed with cardiac catheterization after answering all of her questions. She was brought to the cardiovascular laboratory on 10/24/16, where a formal time-out was performed. The patient was prepped and draped in the sterile fashion. The right groin area was anesthetized with 1% lidocaine. Right femoral artery was cannulated and a 5-Polish introducer was placed. Coronary arteriography was performed using 5-Polish 4- Troy left coronary catheter to cannulate the circumflex, and a 5-Polish Troy 3.5 curve left coronary catheter to cannulate the LAD. A 5-Polish 4 curve right coronary catheter was utilized to cannulate the right coronary artery. Central aortic pressure was recorded using an angle pigtail catheter towards the ascending aorta where central aortic pressure was recorded. The catheter was then passed across the aortic valve and to the left ventricle where left ventricular pressure was recorded. Left ventriculography was performed utilizing a total of 20 cc of Omnipaque dye at a rate of 10 cc per second. The catheter was then pulled by across the aortic valve to recheck gradient. At the end of the case, because of the very superficial entry into the right femoral artery, the sheath was left in place to be manually pulled in the holding area. The total contrast used was 90 cc of Omnipaque dye. The radiation exposure included 7 minutes of fluoro time. The air kerma radiation was 426 mGy. The DAP radiation was 2561 microgray per sq m. RESULTS: HEMODYNAMIC DATA: Left heart catheterization - central aortic pressure recorded 153/81 with a mean of 111. Left ventricular pressure 156 over left ventricular end diastolic pressure of 18 to 20 mmHg. CORONARY ARTERIOGRAPHY: A. Left coronary artery: 1. Left main - virtually absent with separate ostiums for the LAD and the circumflex. 2. Left anterior descending artery. There was mild calcium seen in the wall of the proximal segment of the left anterior descending artery with minimal narrowing of 15%. Just after the first septal online marketing specialist, was another area of mild narrowing of 20%. The rest of the left anterior descending artery had no significant obstruction seen. The diagonal branches similarly had no significant obstruction noted. 3. Circumflex artery - a dominant vessel supplying a thin first and second obtuse marginal branch with a moderate size bifurcating third obtuse marginal branch continuing on to supply a low lying posterior left ventricular branch and left- sided PDA. There was no significant stenosis seen throughout the course of the vessel. LEFT VENTRICULOGRAPHY: Performed in the MOJICA projection revealed symmetrical contraction in left ventricle with overall ejection fraction on normal beats, perhaps 55% with post PVC ejection fraction as much as 65% to 70%. OVERALL ASSESSMENT: Minimal coronary artery disease with well-preserved (recovered) left ventricular systolic function. There was mild increase in left ventricular end diastolic pressure raising the question of decreased compliance. These results were shared with the hospitalist on the case with nurse practitioner, Ashish. CC: Main Davalos MD* [id number]/CPS #: [id number] MTDD
[2016-10-25 07:07] LABS: BUN/Creatinine Ratio 14.8 (8-20); Calcium 8.2 mg/dL (8.6-10.3); EGFR African American 150.2 (>60); EGFR Non-African American 116.8 (>60); Potassium 3.1 mmol/L (3.5-5.0)
[2016-10-25] MEDS: Potassium Chloride LIQUID* 20 MEQ PACKET PO SCH (08:30)
[2016-10-25] MEDS: metroNIDAZOLE TAB* 250 MG PO SCH ×2 (08:30→14:00)
[2016-10-25] MEDS: Aspirin EC Low Dose* 81 MG TAB.EC PO SCH (08:31)
[2016-10-25] MEDS: Heparin VIAL(*) 5000 UNITS/ML VIAL (FIVE THOUSAND) SUBCUT SCH (08:32)
[2016-10-25] MEDS: Nystatin SUSPENSION* 100000 UNITS/ML 5 ML UDC PO SCH ×3 (08:32→14:02)
[2016-10-25] MEDS ORDERED: Metoprolol Succinate XL TAB* 25 MG PO SCH (09:00)
[2016-10-25] MEDS ORDERED: Metoprolol Succinate XL TAB* 50 MG PO SCH (09:00)
[2016-10-25] MEDS: DULoxetine DR CAP* 60 MG CAP.DR PO SCH (09:13)
--- NOTE | 2016-10-25 10:33 | PN ---
Progress Note - Progress Note Note: Psychiatry Case discussed with Polina Elliot Dee - Medically the plan is for patient to be released today, pending psychiatry clearance. A Mental Health Evaluation is appropriate for risk evaluation and clearance for release. Based on patients clearly articulated preference not to work with me, we will provide a different supervising psychiatrist for the Evaluation.
[2016-10-25 14:05] VITALS: BP 139/77
--- NOTE | 2016-10-25 15:17 | PN ---
Subjective Date of Service: 10/25/16 Interval History: Patient seen and examined at bedside. Pt reports that she was having loose stools, reports 1-3 daily. Denies fever, chills, shortness of breath, chest discomfort, N/V. Pt is anxious to get home. Tele: Sinus rhythm to sinus tach, rate 80-90's. Pt was tachy 120-140's this AM when she was anxious. Family History: Unchanged from Admission Social History: Unchanged from Admission Past Medical History: Unchanged from Admission Objective Active Medications: Albuterol (Ventolin Hfa Inhaler*) 2 puff INH Q4H PRN Reason: COUGH Aspirin (Aspirin Ec Low Dose*) 81 mg PO DAILY [facility] Duloxetine HCl (Cymbalta Cap*) 60 mg PO DAILY [facility] Heparin Sodium (Porcine) (Heparin Vial(*)) 5,000 units SUBCUT Q12HR [facility] Levofloxacin (Levaquin Tab*) 500 mg PO 1600 [facility] Lorazepam (Ativan Tab(*)) 1 mg PO Q6H PRN Reason: ANXIETY Metoprolol Succinate (Toprol Xl Tab*) 50 mg PO DAILY [facility] Metronidazole (Flagyl Tab*) 500 mg PO TID [facility] Morphine Sulfate (Ms Contin(*)) 15 mg PO Q12H [facility] Nystatin (Nystatin Suspension*) 200,000 units PO QID [facility] Polyethylene Glycol/Electrolytes (Miralax*) 17 gm PO DAILY PRN Reason: CONSTIPATION Potassium Chloride (Klor-Con Liquid*) 40 meq PO DAILY [facility] Vital Signs 10/24/16 10/24/16 10/24/16 15:29 17:45 20:00 Temperature 98.2 F Pulse Rate Respiratory 18 16 Rate Blood Pressure (mmHg) O2 Sat by Pulse 92 Oximetry 10/24/16 10/24/16 10/25/16 20:38 23:14 01:56 Temperature 98.1 F 99.1 F Pulse Rate 93 82 Respiratory 16 16 18 Rate Blood Pressure 139/71 147/75 (mmHg) O2 Sat by Pulse 93 96 Oximetry 10/25/16 10/25/16 10/25/16 01:57 03:56 03:58 Temperature 100.1 F Pulse Rate 84 Respiratory 18 16 16 Rate Blood Pressure 150/69 (mmHg) O2 Sat by Pulse 94 Oximetry 10/25/16 10/25/16 10/25/16 07:34 09:18 11:18 Temperature 98.4 F 98.3 F Pulse Rate 88 94 Respiratory 16 16 16 Rate Blood Pressure 152/78 139/77 (mmHg) O2 Sat by Pulse 94 95 Oximetry Oxygen Devices in Use Now: None Appearance: NAD, laying in bed Eyes: No Scleral Icterus, PERRLA Ears/Nose/Mouth/Throat: NL Teeth, Lips, Gums, Mucous Membranes Moist Neck: NL Appearance and Movements; NL JVP, Trachea Midline Respiratory: Symmetrical Chest Expansion and Respiratory Effort, - - Few crackles in bases Cardiovascular: NL Sounds; No Murmurs; No JVD, RRR Abdominal: NL Sounds; No Tenderness; No Distention, - - Bowel sounds present Extremities: - - Trace to 1+ edema bilateral LE Skin: - - Dressing to right groin clean, dry and intact Neurological: Alert and Oriented x 3, NL Muscle Strength and Tone Lines/Tubes/Other Access: Clean, Dry and Intact Peripheral IV - site benign Nutrition: Taking PO's Result Diagrams: 10/23/16 05:04 10/25/16 05:53 Additional Lab and Data: Microbiology and Other Data: Microbiology 10/18/16 11:55 Urine Culture - Final Urine No Growth (<1,000 CFU/mL) 10/18/16 11:55 Nasal Screen MRSA (PCR)(CRISTINA) - Final Nasal Mrsa Negative Assess/Plan/Problems-Billing Assessment: Ms. Whitley is a 55 yo female with PMH significant for history of suicide attempts and opiate dependence who presented to the emergency room with altered mental status and low-grade rhabdomyolysis in which she was intubated in the ED on arrival. Possible accidental overdose. Also found to have right upper and lower lobe pneumonia. - Patient Problems (1) Altered mental status Code(s): R41.82 - ALTERED MENTAL STATUS, UNSPECIFIED SNOMED Code(s): 332702145 Comment: - Overdose of home medications, ? accidental. - Brain CT - no acute findings - Pt's significant other states that all medications are accounted for at home - Psych consult, Pt has been cleared. (2) Pneumonia Code(s): J18.9 - PNEUMONIA, UNSPECIFIED ORGANISM SNOMED Code(s): 267628351 Comment: - Chest xray - right upper and lower lobe PNA - suspect aspiration. - Leukocytosis resolved, elevated CRP, procalcitonin on admission was 3.5, afebrile now, - Blood cultures negative. Legionella and Strep pneumoniae urine antigens pending, sputum culture pending - Continue ABX for 2 days, will switch to clindamycin for total of 7 day treatment (3) Non-traumatic rhabdomyolysis Code(s): M62.82 - RHABDOMYOLYSIS SNOMED Code(s): 866828747 Comment: - CK WNL (4) Elevated troponin Code(s): R79.89 - OTHER SPECIFIED ABNORMAL FINDINGS OF BLOOD CHEMISTRY SNOMED Code(s): 788794607 Comment: Echocardiogram shows multiple regional wall abnormalities, decreased LV function and EF 25-30%. Appreciate cardiology consult. Patient started on SILVIO and beta edilia. EKG changes noted with Twave inversion V1, V2. S/P cardiac cath, "clean" and improved LV function Nonischemic cardiomyopathy resolved (5) Electrolyte abnormality Code(s): E87.8 - OTH DISORDERS OF ELECTROLYTE AND FLUID BALANCE, NEC SNOMED Code(s): 960495499 Comment: - Hypomagnesium resolved. - Hypokalemia. Received replacement today. Will start home medication and have Pt get recheck next week (6) Elevated C-reactive protein (CRP) Code(s): R79.82 - ELEVATED C-REACTIVE PROTEIN (CRP) SNOMED Code(s): 907763118 Comment: - Leukocytosis resolved - Afebrile - Chest xray - Right upper and lower lobe PNA (7) Depression Code(s): F32.9 - MAJOR DEPRESSIVE DISORDER, SINGLE EPISODE, UNSPECIFIED SNOMED Code(s): 31332056 Comment: - Continue Cymbalta. (8) DVT prophylaxis Code(s): ERK8832 - SNOMED Code(s): 790888129 (9) Full code status Code(s): Z78.9 - OTHER SPECIFIED HEALTH STATUS SNOMED Code(s): 017419863 Status and Disposition: Inpatient. Stable for discharge to home today.
[2016-10-25] MEDS ORDERED: Levofloxacin TAB* 500 MG PO SCH (16:00)
--- NOTE | 2016-10-26 11:56 | DS ---
DISCHARGE SUMMARY: DATE OF ADMISSION: 10/18/16 DATE OF DISCHARGE: 10/25/16 ATTENDING PHYSICIAN: Dr. Juan Elliott * (dictated by Fabienne Dee NP). PRIMARY CARE PROVIDER: Dr. Main Davalos. PRIMARY DIAGNOSES: 1. Right lobe pneumonia. 2. Rhabdomyolysis. 3. Possible drug overdose. 4. Nonischemic cardiomyopathy. SECONDARY DIAGNOSES: 1. Chronic pain. 2. Depression. CONSULTATIONS WHILE IN THE HOSPITAL: 1. Dr. Milad Raymundo with Psychiatry. 2. Dr. Margarito Fajardo with Cardiology. PROCEDURES: Status post cardiac catheterization on 10/24/[address] Margarito Fajardo. Overall assessment, minimum coronary artery disease with well-preserved (recovered) left ventricular systolic function. There was mild increase in left ventricular end-diastolic pressure, raising the question of decreased compliance. STUDIES WHILE IN THE HOSPITAL: 1. Chest x-ray on 10/18/16. Radiologist's impression: Finding consistent with right lower lobe and right upper lobe pneumonia. Left lung field is clear. 2. Brain CT on 10/18/16. Radiologist's impression: No intracranial mass or hemorrhage is noted. 3. Chest x-ray on 10/19/16. Radiologist's impression: Right upper lobe and right lower lobe pneumonia is noted, similar to that seen on 10/18/16. 4. Transthoracic echocardiogram on 10/21/16. Insulation Cutter's conclusion: There are multiple regional wall motion abnormalities. There is moderate decreased left ventricular systolic function. The estimated ejection fraction is 25% to 30%. The right ventricular chamber size and systolic function are within normal limits. There is trace of aortic regurgitation. The mitral valve leaflets are mildly thickened, mild mitral regurgitation, [id number] tricuspid regurgitation. There is no significant pericardial effusion. 5. Abdomen and pelvis CT scan on 10/21/16. Radiologist's impression: Small bilateral pleural effusions and bilateral lower lobe infiltrates. Small amount of ascites. Status post hysterectomy. Limited noncontrast study. DISCHARGE MEDICATIONS: New home medications: 1. Clindamycin 600 mg oral 3 times daily for 2 days. 2. Metoprolol succinate 50 mg oral daily. 3. Morphine extended release 15 mg oral every 12 hours. 4. Potassium chloride 20 mEq oral daily. Continued home medications: 1. Zantac 150 mg oral twice daily as needed for heartburn. 2. MiraLAX 17 g oral daily as needed for constipation. 3. Nasonex 2 sprays to both nares daily at bedtime. 4. Valium 10 mg oral 3 times daily as needed for anxiety. 5. Cymbalta 60 mg oral daily. 6. Morphine sulfate 15 mg oral every 4 hours as needed for pain. 7. Albuterol HFA inhaler 2 puffs inhalation every 4 hours as needed for shortness of breath or wheeze. 8. Metronidazole 0.75% topical at bedtime as indicated. 9. Claritin 10 mg oral twice daily as needed for allergy symptoms. 10. Saline nasal spray 1 spray to both nares twice daily. 11. Nasacort spray 2 sprays to both nares daily at bedtime. 12. Trazodone 100 mg oral daily at bedtime as needed for sleep. Discontinued home medications: 1. Cymbalta 30 mg oral daily. 2. Morphine extended release 60 mg twice daily. HISTORY OF PRESENT ILLNESS/HOSPITAL COURSE: Ms. Whitley is a 55-year-old female with past medical history significant for depression with history of suicide attempts who was brought to the emergency room by her significant other for altered mental status. According to the patient's significant other, the patient was poorly responsive for approximately 24 hours. He reports the patient has been on morphine for chronic neck pain but in the emergency room naloxone failed to revive the patient. There was no report of recent trauma or complaints of fever, chills, headache or symptoms of upper respiratory tract infection. There was also no reports of suicidal ideation recently. While in the emergency room, the patient was unresponsive to verbal commands, but had an adequate cough and gag reflex. She had a CT scan showing no acute findings. The patient was admitted to the hospital for altered mental status and accidental drug overdose. While in the hospital, the patient received IV fluids for her low-grade rhabdomyolysis. The patient was initially started on empiric antibiotics while they waited blood and urine cultures. The patient was further monitored in the intensive care unit, had a repeat chest x-ray showing right upper lobe and right lower lobe pneumonia. The patient was transferred out of the intensive care unit the next day. According to the fisher trap's notes, the patient confirmed excessive drug use, but denied any suicide attempts. The patient was more awake and responding verbally. The patient's rhabdomyolysis was resolving. The patient was initiated on a clear liquid diet. The patient continued to progress during her stay. She had a few low-grade fevers, max of 100.2. The patient was reinitiated on antibiotics with oral Levaquin. The patient initially had leukocytosis with a white count of 11.9, that had resolved , but then the patient again had leukocytosis on October 21 and on recheck, that had resolved. The patient has had pretty consistent hypokalemia during her stay although it has improved from 2.7 to 3.1 on the day of discharge. The patient had intermittent hypomagnesium and received magnesium replacements. The patient was noted to have elevated troponins on admission of 1.41 down to 0.23 on recheck. It was felt that the patient's elevated troponin may be related to her rhabdomyolysis and echocardiogram was ordered. The patient continued to deny any upper respiratory symptoms prior to her arrival. The patient was reporting constipation. The patient had EKG changes showing T-wave inversions in V1 and V2. The patient had repeat troponins checked and was transferred to the telemetry unit for further monitoring. The patient's next set of troponins were initially 0.37 and then continued to decrease down. The patient had an echocardiogram showing decreased EF of 25% to 30% and with a moderately decreased left ventricular systolic function. The patient also had multiple regional wall motion abnormalities. Dr. Fajardo with Interventional Cardiology consulted on the patient and felt that her severe left ventricular diastolic function could be secondary to the stress of an acute illness such as Takotsubo syndrome versus the presence of coronary artery disease and he recommended a cardiac catheterization. Due to the patient's contrast allergy, she was premedicated for the procedure. The patient continued to do well, was more alert during her stay. I should note that she was complaining of abdominal pain and had an abdomen and pelvis CT scan showing no acute abdominal findings. The patient was very anxious and wanting to go home. The patient was really not able to express the risks of her leaving. She had a psychiatric consult and she was felt to be incompetent to leave against medical advice. The patient and family agreed to stay and underwent a cardiac catheterization on October 24. The cardiac catheterization showed a minimum coronary artery disease with a well-preserved (recovered) left ventricular systolic function. It was felt that the decreased ventricular systolic function could have been related to the patient's acute illness. During the patient's stay, she was started on a beta-edilia and SILVIO inhibitor. The patient's SILVIO inhibitor was discontinued. The patient was maintained on her beta-edilia. The patient received 4 days of IV Levaquin and Flagyl and was transitioned to oral antibiotics. The patient was feeling well and anxious to get home. The patient had a reevaluation of a psychiatric consult today. It was determined that if the patient had overdosed on medications it was not with the intention to harm herself and was accidental. The patient was able to be weaned off of oxygen. Her vital signs have been stable. Ms. Whitley is stable for discharge to home today. PHYSICAL EXAMINATION: Vital signs are as follows: Temperature 98.3, heart rate 94, respiratory rate 16, O2 sat 95% on room air, blood pressure 139/77. DISCHARGE PLAN: Ms. Whitley will be discharged to home. Activity as tolerated. She will be on a regular diet. As far as the patient's right lobe pneumonia, she should be continued on clindamycin t.i.d. for 2 days to complete a 7-day course of antibiotics. The patient will be continued on metoprolol succinate, she may be able to be weaned off of this based on her blood pressures. If she continues to have hypertension, I would recommend restarting Lisinopril. During the patient's stay, her MS Contin extended release has been decreased. She was tolerating 15 mg twice daily well. I recommend maintaining the patient on a decreased dose and she can use her short-acting morphine as needed for breakthrough pain. I-STOP was checked for this patient, with reference #[id number]. Due to the patient's persistent hypokalemia, she has been started on potassium chloride 20 mEq daily. I have asked her to please get her blood work recheck in next week. The patient has a followup appointment with Dr. Fajardo for wound check on October 30 at 1:40 p.m. The patient should be seen in followup by her primary care provider, Dr. Main Davalos. Dr. Davalos's office will call the patient with the date and time of her appointment. The patient has been asked to monitor her right groin site for any signs of bleeding , swelling, or redness and she has been instructed to call Dr. Fajardo's office if she develops any symptoms of an infection at this site. Activity as tolerated. In general I recommend minimizing the patient's medications. The patient has been encouraged to follow up with an outpatient psychiatrist or with the mental health clinic. This is a summarized report of a complex medical history and hospital stay. For further details, please see the entire medical record. TIME SPENT: Time for discharge was 50 minutes and 25 minutes was spent face-to - face with the patient and significant other discussing discharge plans and instructions. CONDITION ON DISCHARGE: Stable. Reviewed by GLADYS LAND 11/06/16 1701 CC: Dr. Main Davalos * [id number]/[facility] #: [id number] JUAN
--- NOTE | 2016-10-31 06:10 | CATH ---
CARDIAC CATHETERIZATION REPORT: * DATE OF PROCEDURE: 10/24/16 ADDENDUM: The original report did not have the description of the right coronary artery. The right coronary artery was a nondominant vessel supplying several acute marginal branches to the right ventricle. No significant stenosis was seen. [id number]/[facility] #: [id number] [facility]
== END 2016-10-25 16:45 | disposition home or self-care (01) | DRG 871 ==
LOC: ED 08:50 → ICU 10:29 → MED 10-19 13:44 → MEDTELE 10-21 15:12
PROVIDERS: ADMIT Internal Medicine Critical Care Medicine; ATTEND Hospitalist
PROC: 4A023N7 Measurement of Cardiac Sampling and Pressure, Left Heart, Percutaneous Approach (ICD-10-PCS; principal; 2016-10-18)
PROC: B2151ZZ Fluoroscopy of Left Heart using Low Osmolar Contrast (ICD-10-PCS; 2016-10-18)
PROC: B2111ZZ Fluoroscopy of Multiple Coronary Arteries using Low Osmolar Contrast (ICD-10-PCS; 2016-10-18)
DX: A41.9 Sepsis, unspecified organism (principal); J18.1 Lobar pneumonia, unspecified organism; N17.9 Acute kidney failure, unspecified; J90 Pleural effusion, not elsewhere classified; I42.8 Other cardiomyopathies; M62.82 Rhabdomyolysis; R18.8 Other ascites; T50.901A Poisoning by unspecified drugs, medicaments and biological substances, accidental (unintentional), initial encounter; F50.9 Eating disorder, unspecified; E83.42 Hypomagnesemia; Z91.041 Radiographic dye allergy status; F32.9 Major depressive disorder, single episode, unspecified; G89.29 Other chronic pain; M54.2 Cervicalgia; R79.89 Other specified abnormal findings of blood chemistry; R79.82 Elevated C-reactive protein (CRP); R10.9 Unspecified abdominal pain; I25.10 Atherosclerotic heart disease of native coronary artery without angina pectoris; E87.6 Hypokalemia; I08.3 Combined rheumatic disorders of mitral, aortic and tricuspid valves; Z90.710 Acquired absence of both cervix and uterus; K59.00 Constipation, unspecified; I10 Essential (primary) hypertension; Z87.891 Personal history of nicotine dependence; F45.22 Body dysmorphic disorder; Z88.1 Allergy status to other antibiotic agents; Z88.5 Allergy status to narcotic agent; Z88.8 Allergy status to other drugs, medicaments and biological substances
CPT/HCPCS: 36415; 36600; 70450; 71010; 74176; 80048; 80053; 80307; 81003; 81015; 82550; 82803; 83605; 83735; 84145; 84484; 85025; 85027; 85610; 85652; 85730; 86140; 87040; 87086; 87502; 87641; 93005; 93306; 93458; 94760; 96374; 99285; A9270-GY; C1887; J1644; J1956; J2250; J2270; J2310; J2543; J3010; J3370; J3475; J3480; J3490; J7512